=== PATIENT | male | born 1965 | race Caucasian/White ===

== ENCOUNTER 2024-10-27 11:41 | Inpatient (IN) | payer OTHER, SELFPAY ==
--- NOTE | 2024-10-27 12:30 | ED ---
General Adult HPI - General Chief complaint: Chest Pain Stated complaint: Chest/abd pain Time Seen by Provider: 10/27/24 12:00 Source: patient, family, RN notes reviewed, old records reviewed Mode of arrival: ambulatory - History of Present Illness Initial comments: This is a 59-year-old male who presents to the emergency department stating he never sees a doctor so he does not know what medical problems he has. Patient states his blood pressure though has been high for years. Patient states for the last week every time he eats he starts to feel like a fullness in his chest and it lasts for a while and then eventually subsides. Patient states he has no problem swallowing or eating and it does not happen immediately after he eats that happens a little bit after he is finished eating. Patient denies any nausea vomiting diarrhea. Patient states he has some difficulty breathing when this occurs but once it subsides his difficulty breathing is gone. Patient states he continues to smoke. 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 Patient denies any leg pain or calf pain or increased swelling in the legs. - Related Data Previous Rx's Medication Instructions Recorded HYDROcodone/APAP 5-325MG [[place] 1 tab PO Q6H PRN #20 tab 05/16/16 5-325] Sulfamethox-Tmp 800-160Mg [Bactrim 2 tab PO Q12HR #56 tab 05/16/16 DS 800-160 mg] Allergies Allergy/AdvReac Type Severity Reaction Status Date / Time codeine AdvReac Abdominal Verified 10/27/24 12:00 Pain Review of Systems ROS Statement: Those systems with pertinent positive or pertinent negative responses have been documented in the HPI. ROS Other: All systems not noted in ROS Statement are negative. Past Medical History Past Medical History: No Reported History History of Any Multi-Drug Resistant Organisms: None Reported Past Surgical History: Orthopedic Surgery Additional Past Surgical History / Comment(s): shoulder Past Anesthesia/Blood Transfusion Reactions: No Reported Reaction Past Psychological History: No Psychological Hx Reported Smoking Status: Current every day smoker Past Alcohol Use History: None Reported Past Drug Use History: None Reported - Past Family History Father Family Medical History: Myocardial Infarction ([place]) General Exam - General Exam Comments Initial Comments: GENERAL: Patient is well-developed and well-nourished. Patient is nontoxic and well- hydrated and is in mild distress. ENT: Neck is soft and supple. No significant lymphadenopathy is noted. Oropharynx is clear. Moist mucous membranes. Neck has full range of motion without eliciting any pain. EYES: The sclera were anicteric and conjunctiva were pink and moist. Extraocular movements were intact and pupils were equal round and reactive to light. Eyelids were unremarkable. PULMONARY: Unlabored respirations. Good breath sounds bilaterally. No audible rales rhonchi or wheezing was noted. CARDIOVASCULAR: Patient is tachycardic at 120 beats a minute ABDOMEN: Soft and nontender with normal bowel sounds. SKIN: Skin is clear with no lesions or rashes and otherwise unremarkable. NEUROLOGIC: Patient is alert and oriented x3. Cranial nerves II through XII are grossly intact. Motor and sensory are also intact. Normal speech, volume and content. Symmetrical smile. MUSCULOSKELETAL: Normal extremities with adequate strength and full range of motion. LYMPHATICS: No significant lymphadenopathy is noted PSYCHIATRIC: Normal psychiatric evaluation. Course Vital Signs 10/27/24 10/27/24 11:56 13:24 Temperature 99.2 F 98.0 F Pulse Rate 124 H 124 H Respiratory 18 17 Rate Blood Pressure 156/93 146/94 O2 Sat by Pulse 95 95 Oximetry Medical Decision Making - Medical Decision Making EKG is interpreted by myself. EKG shows sinus tachycardia at 122 bpm MA interval 148 QRS is 90 QT interval is 276 QTc is 349. Patient's EKG shows no ST segment elevation. Patient does have some T wave inversions in 1 and aVF. Patient also has Q waves in inferior and anterior leads Was pt. sent in by a medical professional or institution (, PA, SLUNK [employer]IN CURER, urgent care, hospital, or shelter...) When possible be specific @ -No Did you speak to anyone other than the patient for history (EMS, parent, family, police, friend...)? What history was obtained from this source @ -No Did you review nursing and triage notes (agree or disagree)? Why? @ -I reviewed and agree with nursing and triage notes Were old charts reviewed (outside hosp., previous admission, EMS record, old EKG, old radiological studies, urgent care reports/EKG's, shelter records)? Report findings @ -No old charts were reviewed Differential Diagnosis? @ -Differential Chest Pain: Stable Angina, Unstable Angina, STEMI, NSTEMI Aortic Dissection, Pneumothorax, Musculoskeletal, Esophageal Spasm GERD, Cholecystitis, Pancreatitis, Zoster, this is not meant to be an all-inclusive list. EKG interpreted by me (3pts min.). @ -As above X-rays interpreted by me (1pt min.). @ -Chest x-ray shows no acute abnormality CT interpreted by me (1pt min.). @ -None done U/S interpreted by me (1pt. min.). @ -None done What testing was considered but not performed or refused? (CT, X-rays, U/S, labs)? Why? @ -None What meds were considered but not given or refused? Why? @ -None Did you discuss the management of the patient with other professionals (prof savanah i.e. , PA, [employer]ER, lab, RT, psych nurse, secondary social studies teacher, inspector tubes, teacher, radio electronics officer, cyanide case hardener)? Give summary @ -I spoke with Dr. Bronson he agreed to come down and see the patient. I spoke with [facility] they agreed to admit the patient. Was smoking cessation discussed for >3mins.? @ -No Was critical care preformed (if so, how long)? @ -35 minutes Were there social determinants of health that impacted care today? How? (Homelessness, low income, unemployed, alcoholism, drug addiction, transportation, low edu. Level, literacy, decrease access to med. care, residential, rehab)? @ -No Was there de-escalation of care discussed even if they declined (Discuss DNR or withdrawal of care, Hospice)? DNR status @ -No What co-morbidities impacted this encounter? (DM, HTN, Smoking, COPD, CAD, Cancer, CVA, ARF, Chemo, Hep., AIDS, mental health diagnosis, sleep apnea, morbid obesity)? @ -None Was patient admitted / discharged? Hospital course, mention meds given and route, prescriptions, significant lab abnormalities, going to OR and other pertinent info. @ -Patient's troponin came back elevated patient had Q waves in the EKG. Patient was started on heparin given Lipitor aspirin and Nitropaste. Patient will be admitted to [facility] with a consult to cardiology Undiagnosed new problem with uncertain prognosis? @ -No Drug Therapy requiring intensive monitoring for toxicity (Heparin, Nitro, Insulin, Cardizem)? @ -No Were any procedures done? @ -No Diagnosis/symptom? @ -NSTEMI Acute, or Chronic, or Acute on Chronic? @ -Acute Uncomplicated (without systemic symptoms) or Complicated (systemic symptoms)? @ -Complicated Side effects of treatment? @ -No Exacerbation, Progression, or Severe Exacerbation? @ -No Poses a threat to life or bodily function? How? (Chest pain, [place], AR, pneumonia, PE, COPD, DKA, ARF, appy, cholecystitis, CVA, Diverticulitis, Homicidal, Suicidal, threat to staff... and all critical care pts) @ -Yes this can lead to cardiac damage and endorgan dysfunction - Lab Data Result diagrams: 10/27/24 13:08 10/27/24 13:08 Lab Results 10/27/24 10/27/24 10/27/24 Range/Units 13:08 13:08 13:08 WBC 12.5 H (3.8-10.6) k/uL RBC 5.69 (4.30-5.90) m/uL Hgb 17.8 H (13.0-17.5) gm/dL Hct 53.5 H (39.0-53.0) % MCV 94.0 (80.0-100.0) fL MCH 31.2 (25.0-35.0) pg MCHC 33.2 (31.0-37.0) g/dL RDW 12.9 (11.5-15.5) % Plt Count 340 (150-450) k/uL MPV 7.1 Neutrophils % 71 % Lymphocytes % 16 % Monocytes % 8 % Eosinophils % 3 % Basophils % 1 % Neutrophils # 8.9 H (1.3-7.7) k/uL Lymphocytes # 2.0 (1.0-4.8) k/uL Monocytes # 1.0 (0-1.0) k/uL Eosinophils # 0.4 (0-0.7) k/uL Basophils # 0.1 (0-0.2) k/uL PT 10.9 (10.0-12.5) sec INR 1.0 (<1.2) APTT 24.1 (22.0-30.0) sec D-Dimer 0.49 (<0.60) mg/L FEU Sodium 140 (137-145) mmol/L Potassium 4.7 (3.5-5.1) mmol/L Chloride 105 (98-107) mmol/L Carbon Dioxide 25 (22-30) mmol/L Anion Gap 10 mmol/L BUN 16 (9-20) mg/dL Creatinine 0.88 (0.66-1.25) mg/dL Est GFR (CKD-EPI)AfAm >90 (>60 ml/min/1.73 sqM) Est GFR (CKD-EPI)NonAf >90 (>60 ml/min/1.73 sqM) Glucose 106 H (74-99) mg/dL Calcium 9.9 (8.4-10.2) mg/dL Magnesium 2.0 (1.6-2.3) mg/dL Total Bilirubin 0.6 (0.2-1.3) mg/dL AST 45 (17-59) U/L ALT 103 H (4-49) U/L Alkaline Phosphatase 92 (38-126) U/L Troponin I (0.000-0.034) ng/mL NT-Pro-B Natriuret Pep 1010 pg/mL Total Protein 7.4 (6.3-8.2) g/dL Albumin 4.8 (3.5-5.0) g/dL Lipase 171 (23-300) U/L 10/27/24 Range/Units 13:08 WBC (3.8-10.6) k/uL RBC (4.30-5.90) m/uL Hgb (13.0-17.5) gm/dL Hct (39.0-53.0) % MCV (80.0-100.0) fL MCH (25.0-35.0) pg MCHC (31.0-37.0) g/dL RDW (11.5-15.5) % Plt Count (150-450) k/uL MPV Neutrophils % % Lymphocytes % % Monocytes % % Eosinophils % % Basophils % % Neutrophils # (1.3-7.7) k/uL Lymphocytes # (1.0-4.8) k/uL Monocytes # (0-1.0) k/uL Eosinophils # (0-0.7) k/uL Basophils # (0-0.2) k/uL PT (10.0-12.5) sec INR (<1.2) APTT (22.0-30.0) sec D-Dimer (<0.60) mg/L FEU Sodium (137-145) mmol/L Potassium (3.5-5.1) mmol/L Chloride (98-107) mmol/L Carbon Dioxide (22-30) mmol/L Anion Gap mmol/L BUN (9-20) mg/dL Creatinine (0.66-1.25) mg/dL Est GFR (CKD-EPI)AfAm (>60 ml/min/1.73 sqM) Est GFR (CKD-EPI)NonAf (>60 ml/min/1.73 sqM) Glucose (74-99) mg/dL Calcium (8.4-10.2) mg/dL Magnesium (1.6-2.3) mg/dL Total Bilirubin (0.2-1.3) mg/dL AST (17-59) U/L ALT (4-49) U/L Alkaline Phosphatase (38-126) U/L Troponin I 3.010 H* (0.000-0.034) ng/mL NT-Pro-B Natriuret Pep pg/mL Total Protein (6.3-8.2) g/dL Albumin (3.5-5.0) g/dL Lipase (23-300) U/L Disposition Clinical Impression: Acute non-ST elevation myocardial infarction (NSTEMI) Disposition: ADMITTED IP TO THIS HOSP Referrals: None,Stated [Primary Care Provider] - 1-2 days Time of Disposition: 14:11
--- NOTE | 2024-10-27 12:47 | XR ---
EXAMINATION TYPE: XR chest 2V DATE OF EXAM: 10/27/2024 CLINICAL INDICATION: Male, 59 years old with history of Chest Pain, TECHNIQUE: Frontal and lateral views of the chest are obtained. COMPARISON: None FINDINGS: Overlying EKG leads are seen. There is no focal air space opacity, pleural effusion, or pne umothorax seen. Cardiomegaly is present. The osseous structures are intact. IMPRESSION: Cardiomegaly without acute pulmonary process. [facility], , 10/27/2024 12:44 PM
[2024-10-27 13:23] LABS: Basophils # (A) 0.1 k/uL (0-0.2); Basophils % (A) 1 %; Eosinophils # (A) 0.4 k/uL (0-0.7); Eosinophils % (A) 3 %; HCT 53.5 % (39.0-53.0); HGB 17.8 gm/dL (13.0-17.5); Lymphocytes % (A) 16 %; MCH 31.2 pg (25.0-35.0); MCHC 33.2 g/dL (31.0-37.0); Mean Platelet Volume 7.1; Monocytes % (A) 8 %; Neutrophils # (A) 8.9 k/uL (1.3-7.7); Neutrophils % (A) 71 %; Platelet Count 340 k/uL (150-450); RBC 5.69 m/uL (4.30-5.90); RDW 12.9 % (11.5-15.5); WBC 12.5 k/uL (3.8-10.6)
[2024-10-27 13:36] LABS: ALT 103 U/L (4-49); AST 45 U/L (17-59); African American GFR (CKD) >90 (>60 ml/min/1.73 sqM); Albumin 4.8 g/dL (3.5-5.0); Alkaline Phosphatase 92 U/L (38-126); Anion Gap 10 mmol/L; Blood Urea Nitrogen 16 mg/dL (9-20); Calcium 9.9 mg/dL (8.4-10.2); Carbon Dioxide 25 mmol/L (22-30); Chloride 105 mmol/L (98-107); Glucose 106 mg/dL (74-99); Lipase 171 U/L (23-300); Non-African American GFR(CKD) >90 (>60 ml/min/1.73 sqM); Potassium 4.7 mmol/L (3.5-5.1); Sodium 140 mmol/L (137-145); Total Bilirubin 0.6 mg/dL (0.2-1.3); Total Protein 7.4 g/dL (6.3-8.2)
[2024-10-27 13:38] LABS: Partial Thromboplastin Time 24.1 sec (22.0-30.0); Prothrombin Time 10.9 sec (10.0-12.5)
[2024-10-27 13:41] LABS: NT-Pro-B-Type Natriuretic Pept 1010 pg/mL
[2024-10-27] MEDS: HEPARIN SODIUM 1,000 UN/ML (10ML VL) IV ONE (14:06)
[2024-10-27] MEDS: HEPARIN SOD,PORK IN 0.45% NACL 25,000 UNIT in 0.45% NACL 1 250ML.BAG IV SCH (14:08)
[2024-10-27] MEDS: LORazepam 2 MG/ML INJ IV STA (14:10)
[2024-10-27] MEDS ORDERED: NITROGLYCERIN SL TABS 0.4 MG TAB SUBLINGUAL PRN ×2 (14:12→15:59)
[2024-10-27] MEDS: ATORVASTATIN 80 MG TAB PO STA (14:15)
[2024-10-27 14:57] LABS: Influenza A Not Detected (Not Detectd); Influenza B Not Detected (Not Detectd); RSV Not Detected (Not Detectd)
[2024-10-27] MEDS: SODIUM CHLORIDE 0.9% 1,000 ML in EMPTY BAG 1 BAG IV SCH (15:30)
[2024-10-27] MEDS: IV FLUID CONTINUATION 1,000 ML IV ONE (15:30)
[2024-10-27] MEDS ORDERED: ALPRAZolam 0.25 MG TAB PO PRN (15:59)
[2024-10-27] MEDS: ASPIRIN 325 MG TAB PO STA (16:12)
[2024-10-27] MEDS: MIDAZOLAM 2 MG/2 ML VIAL IVP ONE (17:12)
[2024-10-27] MEDS: fentaNYL (PF) 50 MCG/ML 2 ML AMP IVP ONE (17:12)
[2024-10-27] MEDS: LIDOCAINE 1% INJ 10MG/ML (20 ML MDV) SQ ONE (17:13)
[2024-10-27] MEDS: VERAPAMIL SYRINGE (5 MG/10 ML) INTRAARTER ONE (17:15)
[2024-10-27] MEDS: HEPARIN SODIUM 1,000 UN/ML (10ML VL) IVP ONE (17:19)
[2024-10-27] MEDS: IOPAMIDOL-370 100ML BTL INJ ONE (17:35)
[2024-10-27] MEDS ORDERED: RX INFO: IV CONTRAST WAS GIVEN 1 EACH MISC MISCELLANE PRN (18:10)
--- NOTE | 2024-10-27 18:14 | P.PCN ---
Date of Procedure: 10/27/24 Operative Findings: CARDIAC CATHETERIZATION PERFORMING PHYSICIAN: Geraldo Bronson MD, RPVI PROCEDURE PERFORMED: 1. Selective right and left coronary angiogram 2. Left heart catheterization 3. Ultrasound-guided access of the right radial artery INDICATION: Acute coronary syndrome COMPLICATION: None APPROACH: Right radial artery LEVEL OF SEDATION: Moderate with a sedation length of 30 minutes PROCEDURE DESCRIPTION: After obtaining an informed consent, the patient was brought to cardiac freezer laboratory technician. Local anesthesia was performed using lidocaine subcutaneously. The right radial artery was cannulated using Seldinger technique, under ultrasound guidance, the guidewire passed easily, following that we advanced a 5-[place] sheath dilator assembly, the wire and dilator were removed and sheath was flushed. Following that, 2 mg of verapamil along with 5000 unit heparin were given. Selective right and left coronary angiogram using a 5-[place] JR4 and JL 3.5 catheters. Following that we did left heart catheterization using 5-[place] pigtail catheter. The procedure was completed there was no complication. SELECTIVE CORONARY ANGIOGRAM: The right coronary artery: Large caliber vessel and a dominant vessel with mild to moderate disease appears to be diffuse mostly involving the distal portion with no evidence of high-grade stenosis Left main: Is angiographically normal The left circumflex: Large caliber vessel. The mid left circumflex is 100% occluded just after the bifurcation of a large OM which has a critical disease involving the proximal portion The left anterior descending artery: Large caliber vessel with a critical disease involving the proximal to midportion by the bifurcation of a diagonal branch. HEMODYNAMICS: LVEDP was about 28 mmHg with no significant gradient across aortic valve CONCLUSION: 1. Critical disease involving the proximal to mid LAD by the bifurcation of a diagonal branch 2. Occluded LCx in the midportion and severe disease involving OM1 as well 3. Elevated left-sided filling pressure POSTPROCEDURE MANAGEMENT: Maximize medical treatment including starting the patient on high intensity statin in addition to aspirin as well as beta-nguyễn and ESTHER inhibitor using lisinopril bit obtain an echocardiogram with Doppler. Consider also starting the patient on diuretics gently. Beside that consult surgery further evaluation of CABG.
[2024-10-27 18:17] LABS: Glucose,Whole Blood 103 mg/dL (70-110)
[2024-10-27] MEDS: SODIUM CHLORIDE 0.9% 1,000 ML IV SCH (18:35)
[2024-10-27] MEDS: NITROGLYCERIN OINT 1 INCH/GM PACKET TOPICAL SCH (18:44)
[2024-10-27] MEDS: METOPROLOL TARTRATE 12.5 MG TAB PO SCH (19:59)
[2024-10-27] MEDS: ATORVASTATIN 80 MG TAB PO SCH (19:59)
[2024-10-27] MEDS: ALPRAZolam 0.5 MG TAB PO PRN (21:17)
[2024-10-28 05:52] LABS: HCT 51.4 % (39.0-53.0); HGB 16.7 gm/dL (13.0-17.5); MCH 31.2 pg (25.0-35.0); MCHC 32.5 g/dL (31.0-37.0); Mean Platelet Volume 7.7; Platelet Count 325 k/uL (150-450); RBC 5.36 m/uL (4.30-5.90); RDW 13.2 % (11.5-15.5); WBC 9.4 k/uL (3.8-10.6)
[2024-10-28 06:12] LABS: African American GFR (CKD) >90 (>60 ml/min/1.73 sqM); Anion Gap 7 mmol/L; Blood Urea Nitrogen 17 mg/dL (9-20); Calcium 9.5 mg/dL (8.4-10.2); Carbon Dioxide 24 mmol/L (22-30); Chloride 106 mmol/L (98-107); Glucose 100 mg/dL (74-99); Non-African American GFR(CKD) >90 (>60 ml/min/1.73 sqM); Potassium 4.8 mmol/L (3.5-5.1); Sodium 137 mmol/L (137-145)
[2024-10-28] MEDS: HEPARIN SODIUM 1,000 UN/ML (10ML VL) IV PRN (06:28)
--- NOTE | 2024-10-28 06:34 | P.CRDCN ---
History of Present Illness Consult date: 10/27/24 History of present illness: The patient is a very pleasant 59-year-old gentleman who did not see a physician or primary care physician in more than 8 years with a past medical history significant for hypertension and dyslipidemia and smoking presented to the hospital complaining of chest discomfort started a week ago. He was experiencing discomfort in the middle of the chest as a pressure on the chest with no radiation to the arm or neck or shoulders or back and no associated symptoms of any shortness of breath or sweating or dizziness or lightheadedness or any presyncope or syncope he underwent further evaluation in the ER including EKG showing Q waves anteriorly and troponin came in to be abnormal and concerning for acute coronary event with chest x-ray did not show any acute abnormalities. Subsequently the patient underwent a heart catheterization which revealed severe tow-vessel CAD with occluded LCx and critical disease involving the LAD and intermediate disease involving the right coronary artery. At that point we consulted surgery to see the patient the patient is in process of seeing seen by cardiothoracic surgical team. An echocardiogram was ordered and is still pending. The physical examination is remarkable for regular rhythm with a soft systolic murmur and clear breathing sounds bilaterally and no edema was noted. Assessment Acute coronary syndrome Severe CAD as described above History of smoking Multiple comorbid conditions Plan Restart the patient back on heparin Continue aspirin Add high intensity statin Add beta-nguyễn and ESTHER inhibitor Follow-up on the echocardiogram Further recommendation from the cardiothoracic surgical team Past Medical History Past Medical History: Hypertension, Myocardial Infarction ([place]) Last Myocardial Infarction Date:: 10/27/24 History of Any Multi-Drug Resistant Organisms: None Reported Past Surgical History: Orthopedic Surgery Additional Past Surgical History / Comment(s): shoulder, finger sx Past Anesthesia/Blood Transfusion Reactions: No Reported Reaction Past Psychological History: No Psychological Hx Reported Additional Psychological History / Comment(s): Lives with his significant other. 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 No experience, no travel, no animal exposures. Heavy tobacco and caffeine use. Did not relates to injection drug use, or significant alcohol use. Smoking Status: Current every day smoker Past Alcohol Use History: None Reported Past Drug Use History: None Reported - Past Family History Father Family Medical History: Myocardial Infarction (MS) Medications and Allergies Home Medications Medication Instructions Recorded Confirmed Type Aspirin EC [Ecotrin Low Dose] 81 mg PO DAILY 10/27/24 10/27/24 History Allergies Allergy/AdvReac Type Severity Reaction Status Date / Time codeine AdvReac Abdominal Verified 10/27/24 14:55 Pain Physical Exam Vitals: Vital Signs Temp Pulse Pulse Resp BP BP Pulse Ox 10/28/24 05:00 88 14 127/85 94 L 10/28/24 04:00 98.5 F 91 19 103/70 94 L 10/28/24 03:00 91 20 108/68 95 10/28/24 02:00 95 16 99/62 95 10/28/24 01:00 97 13 107/56 96 10/28/24 00:00 99.2 F 101 H 12 135/64 93 L 10/27/24 23:16 103 H 20 135/64 94 L 10/27/24 23:00 105 H 15 141/89 94 L 10/27/24 22:00 110 H 27 H 152/95 93 L 10/27/24 21:00 105 H 14 142/85 93 L 10/27/24 20:00 97.6 F 112 H 24 147/100 10/27/24 19:00 108 H 25 H 147/98 92 L 10/27/24 18:45 112 H 18 139/93 90 L 10/27/24 18:30 109 H 24 141/100 92 L 10/27/24 18:15 98.1 F 109 H 16 148/99 92 L 10/27/24 16:15 103 H 16 143/79 10/27/24 16:01 98.5 F 116 H 16 141/91 93 L 10/27/24 16:00 111 H 16 149/87 10/27/24 15:52 128 H 22 166/105 93 L 10/27/24 15:45 116 H 16 169/89 10/27/24 15:30 119 H 16 141/91 99 10/27/24 14:42 123 H 17 167/107 93 L 10/27/24 13:24 98.0 F 124 H 17 146/94 95 10/27/24 11:56 99.2 F 124 H 18 156/93 95 Intake and Output 10/27/24 10/27/24 10/28/24 14:59 22:59 06:59 Intake Total 624.167 140.833 Output Total 1075 0 Balance -450.833 140.833 Intake: IV 575 75 Sodium Chloride 0.9% 1, 225 75 000 ml @ 75 mls/hr IV . [id number] [facility] Rx#:[id number] Intake, IV Titration 49.167 65.833 Amount Heparin Sod,Pork in 0.45% 49.167 65.833 NaCl 25,000 unit In 0.45 % NaCl 1 250ml.bag @ 8. 479 UNITS/KG/HR 10 mls/hr IV .Q24H [facility] Rx#: [id number] Output: Urine 1075 0 Other: Voiding Method Urinal Urinal Weight 117.934 kg 120.4 kg 119 kg Results 10/28/24 05:18 10/28/24 05:18 Cardiac Enzymes 10/27/24 10/27/24 10/27/24 Range/Units 13:08 13:08 19:52 AST 45 (17-59) U/L Troponin I 3.010 H* 3.940 H* (0.000-0.034) ng/mL 10/27/24 Range/Units 23:08 AST (17-59) U/L Troponin I 4.140 H* (0.000-0.034) ng/mL Coagulation 10/27/24 10/28/24 Range/Units 13:08 05:18 PT 10.9 (10.0-12.5) sec APTT 24.1 25.1 (22.0-30.0) sec CBC 10/27/24 10/28/24 Range/Units 13:08 05:18 WBC 12.5 H 9.4 (3.8-10.6) k/uL RBC 5.69 5.36 (4.30-5.90) m/uL Hgb 17.8 H 16.7 (13.0-17.5) gm/dL Hct 53.5 H 51.4 (39.0-53.0) % Plt Count 340 325 (150-450) k/uL Comprehensive Metabolic Panel 10/27/24 10/28/24 Range/Units 13:08 05:18 Sodium 140 137 (137-145) mmol/L Potassium 4.7 4.8 (3.5-5.1) mmol/L Chloride 105 106 (98-107) mmol/L Carbon Dioxide 25 24 (22-30) mmol/L BUN 16 17 (9-20) mg/dL Creatinine 0.88 0.92 (0.66-1.25) mg/dL Glucose 106 H 100 H (74-99) mg/dL Calcium 9.9 9.5 (8.4-10.2) mg/dL AST 45 (17-59) U/L ALT 103 H (4-49) U/L Alkaline Phosphatase 92 (38-126) U/L Total Protein 7.4 (6.3-8.2) g/dL Albumin 4.8 (3.5-5.0) g/dL Current Medications Generic Name Dose Route Start Last Admin Trade Name Freq PRN Reason Stop Dose Admin Alprazolam 0.25 mg 10/27/24 15:59 Alprazolam 0.25 Mg Tab PO Q6HR PRN Mild Anxiety Alprazolam 0.5 mg 10/27/24 15:59 10/27/24 21:17 Alprazolam 0.5 Mg Tab PO 0.5 mg Q6HR PRN Administration Moderate Anxiety Aspirin 325 mg 10/28/24 09:00 Aspirin 325 Mg Tab PO DAILY MAYTE Atorvastatin Calcium 80 mg 10/27/24 21:00 10/27/24 19:59 Atorvastatin 80 Mg Tab PO 80 mg HS MAYTE Administration Heparin Sodium (Porcine) 0 unit 10/28/24 06:21 10/28/24 06:28 Heparin Sodium 1,000 Un/Ml (10ml Vl) IV 4,000 unit PER PROTOCOL PRN Administration Low PTT Protocol Heparin Sodium/Sodium Chloride 250 mls @ 10 mls/hr 10/27/24 14:00 10/28/24 06:24 25,000 unit/ Sodium Chloride IV 11.48 units/kg/hr .Q24H MAYTE 13.539 mls/hr Titration Protocol 8.479 UNITS/KG/HR Heparin Sodium (Porcine) 10, 1,001 mls @ 999 mls/hr 10/28/24 07:00 000 unit/ Sodium Chloride IRRIGATION 10/28/24 23:00 ONCE PRN INTRA-OP Heparin Sodium (Porcine) 2,500 250.5 mls @ 250 mls/hr 10/28/24 07:00 unit/ Sodium Chloride IRRIGATION 10/28/24 23:00 ONCE PRN INTRA-OP Sodium Chloride 1,000 ml/ IV 1,000 mls @ 117.934 mls/hr 10/27/24 16:00 10/27/24 22:39 Solution IV Not Given .Q8H29M MAYTE 1 ML/KG/HR Lisinopril 2.5 mg 10/28/24 09:00 Lisinopril 2.5 Mg Tab PO DAILY MAYTE Metoprolol Tartrate 12.5 mg 10/27/24 21:00 10/27/24 19:59 Metoprolol Tartrate 12.5 Mg Tab PO 12.5 mg BID MAYTE Administration Miscellaneous Information 1 each 10/27/24 18:10 Rx Info: Iv Contrast Was Given 1 Each Misc MISCELLANE 10/29/24 18:10 DAILY PRN Per Protocol Nitroglycerin 1 inch 10/27/24 18:00 10/28/24 05:56 Nitroglycerin Oint 1 Inch/Gm Packet TOPICAL 1 inch Q6HR MAYTE Administration Nitroglycerin 0.4 mg 10/27/24 15:59 Nitroglycerin Sl Tabs 0.4 Mg Tab SUBLINGUAL Q5M PRN Chest Pain Intake and Output 10/27/24 10/27/24 10/28/24 14:59 22:59 06:59 Intake Total 624.167 140.833 Output Total 1075 0 Balance -450.833 140.833 Intake: IV 575 75 Sodium Chloride 0.9% 1, 225 75 000 ml @ 75 mls/hr IV . [id number] [facility] Rx#:[id number] Intake, IV Titration 49.167 65.833 Amount Heparin Sod,Pork in 0.45% 49.167 65.833 NaCl 25,000 unit In 0.45 % NaCl 1 250ml.bag @ 8. 479 UNITS/KG/HR 10 mls/hr IV .Q24H [facility] Rx#: [id number] Output: Urine 1075 0 Other: Voiding Method Urinal Urinal Weight 117.934 kg 120.4 kg 119 kg Patient Weight 10/28/24 06:59 Weight 119 kg 10/28/24 05:18 10/28/24 05:18
--- NOTE | 2024-10-28 06:35 | P.PN ---
Subjective Progress Note Date: 10/28/24 The patient is a very pleasant 59-year-old gentleman who did not see a physician or primary care physician in more than 8 years with a past medical history significant for hypertension and dyslipidemia and smoking presented to the hospital complaining of chest discomfort started a week ago. He was experi encing discomfort in the middle of the chest as a pressure on the chest with no radiation to the arm or neck or shoulders or back and no associated symptoms of any shortness of breath or sweating or dizziness or lightheadedness or any presyncope or syncope he underwent further evaluation in the ER including EKG showing Q waves anteriorly and troponin came in to be abnormal and concerning for acute coronary event with chest x-ray did not show any acute abnormalities. Subsequently the patient underwent a heart catheterization which revealed severe tow-vessel CAD with occluded LCx and critical disease involving the LAD and intermediate disease involving the right coronary artery. At that point we consulted surgery to see the patient the patient is in process of seeing seen by cardiothoracic surgical team. An echocardiogram was ordered and is still pending. The physical examination is remarkable for regular rhythm with a soft systolic murmur and clear breathing sounds bilaterally and no edema was noted. October 28, 2024 The patient was seen and evaluated this morning with he has been asymptomatic throughout the night. Hemodynamically he is stable. He is back on heparin IV. Beside that he is on aspirin and high intensity statin and beta-nguyễn and ESTHER inhibitor. The echo still pending. The physical examination is remarkable for regular rhythm and soft systolic murmur and clear breathing sounds bilaterally and no edema was noted in the lower extremities Assessment Acute coronary syndrome Severe CAD as described above History of smoking Multiple comorbid conditions Plan Continue the current medical regimen as described above Follow-up on the echocardiogram Follow-up with the patient after he will be seen by the surgical team Objective - Vital Signs Vital signs: Vital Signs Temp 98.5 F 10/28/24 04:00 Pulse 88 10/28/24 05:00 Resp 14 10/28/24 05:00 BP 127/85 10/28/24 05:00 Pulse Ox 94 L 10/28/24 05:00 FiO2 Intake & Output 10/27/24 10/27/24 10/28/24 06:59 18:59 06:59 Intake Total 391.167 373.833 Output Total 375 700 Balance 16.167 -326.167 Weight 120.4 kg 119 kg Intake: IV 350 300 Sodium Chloride 0.9% 1, 300 000 ml @ 75 mls/hr IV . [id number] [facility] Rx#:[id number] Intake, IV Titration 41.167 73.833 Amount Heparin Sod,Pork in 0.45% 41.167 73.833 NaCl 25,000 unit In 0.45 % NaCl 1 250ml.bag @ 8. 479 UNITS/KG/HR 10 mls/hr IV .Q24H [facility] Rx#: [id number] Output: Urine 375 700 Other: Voiding Method Urinal - Labs CBC & Chem 7: 10/28/24 05:18 10/28/24 05:18 Labs: Abnormal Lab Results - Last 24 Hours (Table) 10/27/24 10/27/24 10/27/24 Range/Units 13:08 13:08 13:08 WBC 12.5 H (3.8-10.6) k/uL Hgb 17.8 H (13.0-17.5) gm/dL Hct 53.5 H (39.0-53.0) % Neutrophils # 8.9 H (1.3-7.7) k/uL Glucose 106 H (74-99) mg/dL ALT 103 H (4-49) U/L Troponin I 3.010 H* (0.000-0.034) ng/mL 10/27/24 10/27/24 10/28/24 Range/Units 19:52 23:08 05:18 WBC (3.8-10.6) k/uL Hgb (13.0-17.5) gm/dL Hct (39.0-53.0) % Neutrophils # (1.3-7.7) k/uL Glucose 100 H (74-99) mg/dL ALT (4-49) U/L Troponin I 3.940 H* 4.140 H* (0.000-0.034) ng/mL
[2024-10-28] MEDS ORDERED: HEPARIN SODIUM,PORCINE (1 ML) 2,500 UNIT in SODIUM CHLORIDE 0.9% 250 ML IRRIGATION PRN (07:00)
[2024-10-28] MEDS ORDERED: HEPARIN SODIUM,PORCINE 10,000 UNIT in SODIUM CHLORIDE 0.9% 1,000 ML IRRIGATION PRN (07:00)
[2024-10-28 08:00] LABS: INR 1.2 (<1.2); Partial Thromboplastin Time 48.1 sec (22.0-30.0); Prothrombin Time 12.4 sec (10.0-12.5)
[2024-10-28 08:11] LABS: ALT 109 U/L (4-49); AST 51 U/L (17-59); African American GFR (CKD) >90 (>60 ml/min/1.73 sqM); Albumin 4.4 g/dL (3.5-5.0); Alkaline Phosphatase 88 U/L (38-126); Anion Gap 8 mmol/L; Blood Urea Nitrogen 18 mg/dL (9-20); Calcium 9.6 mg/dL (8.4-10.2); Carbon Dioxide 23 mmol/L (22-30); Chloride 106 mmol/L (98-107); Glucose 142 mg/dL (74-99); Magnesium 2.1 mg/dL (1.6-2.3); Non-African American GFR(CKD) >90 (>60 ml/min/1.73 sqM); Potassium 5.3 mmol/L (3.5-5.1); Sodium 137 mmol/L (137-145); Total Bilirubin 0.8 mg/dL (0.2-1.3); Total Protein 6.8 g/dL (6.3-8.2)
[2024-10-28] MEDS: ASPIRIN 325 MG TAB PO SCH (08:11)
[2024-10-28 08:37] LABS: Chol/HDL Ratio 4.61 Ratio; LDL Cholesterol,Calculated 69.7 mg/dL (0.0-131.0)
--- NOTE | 2024-10-28 09:22 | US ---
EXAMINATION TYPE: Pre-Operative Non-Invasive Evaluation of the hand for Potential Radial Artery Donald anand, Measurements only DATE OF EXAM: 10/28/2024 9:06 AM CLINICAL INDICATION: Male, 59 years old with history of Pre-Op Cardiac Surgery; preop, Preop- Cardiac Surgery TECHNIQUE:Grayscale and color Doppler imaging of the radial artery(s) SIDE PERFORMED: left FINDINGS: Dominant hand: right Duplex Findings: Radial Artery: Color flow seen Measurements in mm, transverse view: Left Radial: Proximal: 5.8 x 4.3 mm Mid: 4.5 x 3.5 mm Distal: 4.6 x 4.0 mm Slightly limited due to IV IMPRESSION: 1. No evidence for vascular occlusion. 2. Measurements as described above. [facility], , 10/28/2024 9:20 AM
--- NOTE | 2024-10-28 09:22 | US ---
EXAMINATION TYPE: US vein mapping BILAT DATE OF EXAM: 10/28/2024 9:00 AM COMPARISON: NONE CLINICAL INDICATION: Male, 59 years old with history of PreOp Cardiac Surgery; preop, Preop- Cardiac Surgery TECHNIQUE: Grayscale and color Doppler imaging of the lower extremity venous system. SIDE PERFORMED: Bilateral FINDINGS: DUPLEX FINDINGS: Greater Saphenous: Color flow seen Measurements in mm: Right Greater Saphenous: Groin: 8.7 x 8.5 mm High Thigh: 3.4 x 3.5 mm Mid Thigh: 4.5 x 4.1 mm Above Knee: 3.8 x 3.8 mm Knee: 3.7 x 3.1 mm Below Knee: 3.7 x 3.1 mm Mid Calf: 4.0 x 3.5 mm At Ankle: 5.0 x 3.9 mm Left Greater Saphenous: Groin: 9.5 x 7.5 mm High Thigh: 4.3 x 3.3 mm Mid Thigh: 4.5 x 4.1 mm Above Knee: 3.8 x 3.8 mm Knee: 4.2 x 3.5 mm Below Knee: 4.0 x 3.1 mm Mid Calf: 4.3 x 3.3 mm At Ankle: 6.2 x 4.0 mm IMPRESSION: 1. No evidence for occlusion. 2. GSV measurements listed above. 3. Performing surgeon to determine viability as conduit. [facility], , 10/28/2024 9:19 AM
--- NOTE | 2024-10-28 09:23 | US ---
EXAMINATION TYPE: US carotid duplex BILAT DATE OF EXAM: 10/28/2024 COMPARISON: NONE CLINICAL INDICATION: Male, 59 years old with history of Pre-Op Cardiac Surgery; preop Additional History: Z01.81- Pre-operative exam TECHNIQUE: Grayscale, color Doppler and spectral Doppler evaluation of the bilateral carotid systems and vertebral arteries. Indirect Doppler criteria was utilized. FINDINGS: EXAM MEASUREMENTS: RIGHT: Peak Systolic Velocity (PSV) cm/sec ----- Right CCA: 74.3 ----- Right ICA: 101.7 ----- Right ECA: 158.9 ICA/CCA ratio: 1.4 RIGHT: End Diastole cm/sec ----- Right CCA: 19.3 ----- Right ICA: 30.5 ----- Right ECA: 17.0 LEFT: Peak Systolic Velocity (PSV) cm/sec ----- Left CCA: 78.4 ----- Left ICA: 93.6 ----- Left ECA: 83.5 ICA/CCA ratio: 1.2 LEFT: End Diastole cm/sec ----- Left CCA: 21.2 ----- Left ICA: 39.4 ----- Left ECA: 9.2 VERTEBRALS (direction of flow): Right Vertebral: Antegrade Left Vertebral: Antegrade Rhythm: Normal [employer] NOTES: plaque seen in bilateral bulbs Color Doppler imaging shows patency with blood flow throughout the carotid artery. Spectral waveforms are within normal limits. IMPRESSION: Right: Less than 50% stenosis of the carotid bifurcation. Left: No hemodynamically significant stenosis. Criteria for Assigning % of Stenosis / Diameter reduction (Estimation based on the indirect measurements of the internal carotid artery velocities (ICA PSV). 1. Normal (no stenosis)=ICA PSV < 125 cm/s: ratio < 2.0: ICA EDV<40 cm/s. 2. Less than 50% stenosis=ICA PSV < 125 cm/s: ratio < 2.0: ICA EDV<40 cm/s. 3. 50 to 69% stenosis=ICA PSV of 125 to 230 cm/s: ration 2.0 ? 4.0: ICA EDV 40-100 cm/s. 4. Greater than 70% stenosis to near occlusion= ICA PSV > 230 cm/s: ratio > 4.0: ICA EDV > 100 cm/s. 5. Near occlusion= ICA PSV velocities may be low or undetectable: variable ratio and ICA EDV. 6. Total occlusion=unable to detect flow. [facility], , 10/28/2024 9:21 AM
[2024-10-28 10:04] LABS: Appearance,Urine Clear (Clear); Bilirubin,Urine Negative (Negative); Blood,Urine Negative (Negative); Color,Urine Light Yellow; Glucose,Urine (UA) Negative (Negative); Ketones,Urine Negative (Negative); Leukocyte Esterase,Urine Negative (Negative); Nitrite,Urine Negative (Negative); PH, Urine 6.5 (5.0-8.0); Protein,Urine Negative (Negative); Specific Gravity,Urine 1.019 (1.001-1.035); Urobilinogen,Urine <2.0 mg/dL (<2.0)
--- NOTE | 2024-10-28 10:15 | P.GSCN ---
History of Present Illness Consult date: 10/28/24 Reason for Consult: Multivessel coronary artery disease, non-ST elevated myocardial infarction this admission Requesting physician: Geraldo Bronson History of present illness: This is a 59-year-old gentleman who does not follow with a primary care physician on a regular basis. He reports it has been about 8 years since he has last seen in physician. Patient has a past medical history significant for hypertension, B-cell lymphoma, obesity with a BMI of 36.6 kg/m, early onset coronary artery disease with his grandfather dying at age 55 from a myocardial infarction and chronic ongoing tobacco dependence in which he smokes about 2 packs of cigarettes per day. He presented to the emergency department here at [facility] yesterday October 27, 2024 with complaints of indigestion after eating, fullness in his chest and some associated shortness of breath. He reports he felt this was indigestion and was treating himself with Gas-X, Mylanta and Verners. He does report having GI symptoms for the last 7 days with complaints of diarrhea. The patient also reports that the symptoms of chest fullness has been present for about the last 7 to 8 days. He denies any recent fever, chills, nausea, vomiting, constipation, headache, diaphoresis, hematemesis, hemoptysis, edema, presyncope or syncope. Due to the chest fullness he decided to present to the emergency department for further evaluation and treatment recommendations. Initial laboratory results showed a WBC count of 12.5, hemoglobin 7.8, hematocrit 53.5, neutrophils 8.9, PT 10.9, INR at 1.0, PTT 24.1, D-dimer 0.49, sodium 140, potassium 4.7, chloride 105, BUN 16, creatinine 0.88, glucose 106, calcium 9.9, magnesium 2.0, AST 45, ALT 103, proBNP 1010, and serial troponins were elevated as high as 4.140. A twelve-lead EKG was completed which showed sinus tachycardia with a heart rate of 122 bpm and Q waves anteriorly. A chest x-ray was completed which showed cardiomegaly without acute pulmonary process. Subsequently, due to the patient's presenting symptoms and elevated troponins a consult was placed to Dr. Bronson from [facility]. Dr. Bronson met with the patient, and recommended the patient undergo a cardiac catheterization which was completed yesterday 10/27/2024. The cardiac catheterization revealed critical disease involving the proximal mid left anterior sending coronary artery by the bifurcation of the diagonal branch, occluded left circumflex coronary artery in the midportion and severe disease involving the obtuse marginal 1 coronary artery. The right coronary artery showed to be a dominant vessel with mild to moderate diffuse disease involving the distal portion with no evidence of high-grade stenosis. The results of the cardiac catheterization were reviewed with the patient by Dr. Bronson and a consult was placed to Dr. Javier Jose from cardiothoracic surgery for further evaluation and treatment recommendations including myocardial vascularization surgery. Review of Systems A review of systems was completed and was negative except as mentioned in the HPI. Past Medical History Past Medical History: Hypertension, Myocardial Infarction ([place]) Additional Past Medical History / Comment(s): B-cell lymphoma Last Myocardial Infarction Date:: 10/27/24 History of Any Multi-Drug Resistant Organisms: None Reported Past Surgical History: Orthopedic Surgery, Tonsillectomy Additional Past Surgical History / Comment(s): shoulder, right hand middle finger surgery secondary to a strep group B and Staphylococcus aureus infection in 2016 Past Anesthesia/Blood Transfusion Reactions: No Reported Reaction Past Psychological History: No Psychological Hx Reported Additional Psychological History / Comment(s): Lives with his significant other. 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 No experience, no travel, no animal exposures. Heavy tobacco and caffeine use. Did not relates to injection drug use, or significant alcohol use. Smoking Status: Current every day smoker (Smokes 1 to 2 packs of cigarettes per day) Past Alcohol Use History: None Reported Past Drug Use History: None Reported - Past Family History Father Family Medical History: Myocardial Infarction ([place]) Additional Family Medical History / Comment(s): Grandfather from a myocardial infarction at age 55. Medications and Allergies Home Medications Medication Instructions Recorded Confirmed Type Aspirin EC [Ecotrin Low Dose] 81 mg PO DAILY 10/27/24 10/27/24 History Allergies Allergy/AdvReac Type Severity Reaction Status Date / Time codeine AdvReac Abdominal Verified 10/27/24 14:55 Pain Surgical - Exam Vital Signs Temp Pulse Resp BP Pulse Ox 99.2 F 124 H 18 156/93 95 10/27/24 11:56 10/27/24 11:56 10/27/24 11:56 10/27/24 11:56 10/27/24 11:56 - General well developed, well nourished, no distress, no pain, obese - Eyes PERRL, normal ocular movement, no pale, no icteric - ENT normal pinna, normal nares, normal mucosa, no hearing loss, no congestion, poor mcfp - Neck Neck is supple, no lymph no lymphadenopathy. no masses, no bruits, trachea midline, no venous distension - Respiratory Lung sounds essentially clear throughout. No wheezes, rhonchi or crackles. Respirations are symmetrical and nonlabored. - Cardiovascular Regular rhythm and rate. S1 and S2 present, negative for S3 or gallop. Systolic murmur present, heard best to his right sternal border. No edema present. - Abdomen Abdomen is soft, nontender nondistended. Active bowel sounds present all 4 abdominal quadrants. No guarding or rigidity. No organomegaly appreciated. - Genitourinary Deferred - Rectum Deferred - Integumentary Skin is warm and dry. No clubbing or cyanosis is present. no rash, no growths, no abnormal pigmentation - Neurologic No focal deficits. - Musculoskeletal Moves all 4 extremities with equal strength bilateral. normal gait, normal posture - Psychiatric oriented to time, oriented to person, oriented to place, speech is normal, memory intact Results - Labs 10/28/24 05:18 10/28/24 07:32 Abnormal Lab Results - Last 24 Hours (Table) 10/27/24 10/27/24 10/27/24 Range/Units 13:08 13:08 13:08 WBC 12.5 H (3.8-10.6) k/uL Hgb 17.8 H (13.0-17.5) gm/dL Hct 53.5 H (39.0-53.0) % Neutrophils # 8.9 H (1.3-7.7) k/uL INR (<1.2) APTT (22.0-30.0) sec Potassium (3.5-5.1) mmol/L Glucose 106 H (74-99) mg/dL ALT 103 H (4-49) U/L Troponin I 3.010 H* (0.000-0.034) ng/mL HDL Cholesterol (40.00-60.00) mg/dL TSH (0.465-4.680) mIU/L 10/27/24 10/27/24 10/28/24 Range/Units 19:52 23:08 05:18 WBC (3.8-10.6) k/uL Hgb (13.0-17.5) gm/dL Hct (39.0-53.0) % Neutrophils # (1.3-7.7) k/uL INR (<1.2) APTT (22.0-30.0) sec Potassium (3.5-5.1) mmol/L Glucose 100 H (74-99) mg/dL ALT (4-49) U/L Troponin I 3.940 H* 4.140 H* (0.000-0.034) ng/mL HDL Cholesterol 26.90 L (40.00-60.00) mg/dL TSH (0.465-4.680) mIU/L 10/28/24 10/28/24 Range/Units 07:32 07:32 WBC (3.8-10.6) k/uL Hgb (13.0-17.5) gm/dL Hct (39.0-53.0) % Neutrophils # (1.3-7.7) k/uL INR 1.2 H (<1.2) APTT 48.1 H (22.0-30.0) sec Potassium 5.3 H (3.5-5.1) mmol/L Glucose 142 H (74-99) mg/dL ALT 109 H (4-49) U/L Troponin I (0.000-0.034) ng/mL HDL Cholesterol (40.00-60.00) mg/dL TSH 0.395 L (0.465-4.680) mIU/L Diabetes panel 10/27/24 10/28/24 10/28/24 Range/Units 13:08 05:18 07:32 Sodium 140 137 137 (137-145) mmol/L Potassium 4.7 4.8 5.3 H (3.5-5.1) mmol/L Chloride 105 106 106 (98-107) mmol/L Carbon Dioxide 25 24 23 (22-30) mmol/L BUN 16 17 18 (9-20) mg/dL Creatinine 0.88 0.92 0.77 (0.66-1.25) mg/dL Glucose 106 H 100 H 142 H (74-99) mg/dL Calcium 9.9 9.5 9.6 (8.4-10.2) mg/dL AST 45 51 (17-59) U/L ALT 103 H 109 H (4-49) U/L Alkaline Phosphatase 92 88 (38-126) U/L Total Protein 7.4 6.8 (6.3-8.2) g/dL Albumin 4.8 4.4 (3.5-5.0) g/dL Triglycerides 137.00 (0.00-149.00) mg/dL HDL Cholesterol 26.90 L (40.00-60.00) mg/dL Thyroid panel 10/28/24 Range/Units 07:32 TSH 0.395 L (0.465-4.680) mIU/L Calcium panel 10/27/24 10/28/24 10/28/24 Range/Units 13:08 05:18 07:32 Calcium 9.9 9.5 9.6 (8.4-10.2) mg/dL Albumin 4.8 4.4 (3.5-5.0) g/dL Pituitary panel 10/27/24 10/28/24 10/28/24 Range/Units 13:08 05:18 07:32 Sodium 140 137 137 (137-145) mmol/L Potassium 4.7 4.8 5.3 H (3.5-5.1) mmol/L Chloride 105 106 106 (98-107) mmol/L Carbon Dioxide 25 24 23 (22-30) mmol/L BUN 16 17 18 (9-20) mg/dL Creatinine 0.88 0.92 0.77 (0.66-1.25) mg/dL Glucose 106 H 100 H 142 H (74-99) mg/dL Calcium 9.9 9.5 9.6 (8.4-10.2) mg/dL TSH 0.395 L (0.465-4.680) mIU/L Adrenal panel 10/27/24 10/28/24 10/28/24 Range/Units 13:08 05:18 07:32 Sodium 140 137 137 (137-145) mmol/L Potassium 4.7 4.8 5.3 H (3.5-5.1) mmol/L Chloride 105 106 106 (98-107) mmol/L Carbon Dioxide 25 24 23 (22-30) mmol/L BUN 16 17 18 (9-20) mg/dL Creatinine 0.88 0.92 0.77 (0.66-1.25) mg/dL Glucose 106 H 100 H 142 H (74-99) mg/dL Calcium 9.9 9.5 9.6 (8.4-10.2) mg/dL Total Bilirubin 0.6 0.8 (0.2-1.3) mg/dL AST 45 51 (17-59) U/L ALT 103 H 109 H (4-49) U/L Alkaline Phosphatase 92 88 (38-126) U/L Total Protein 7.4 6.8 (6.3-8.2) g/dL Albumin 4.8 4.4 (3.5-5.0) g/dL - Imaging Chest x-ray: report reviewed, image reviewed Additional studies: Cardiac catheterization films reviewed by Dr. Javier Jose. Assessment and Plan Assessment: Coronary artery disease Acute non-ST elevated myocardial infarction this admission History of hypertension History of B-cell lymphoma Obesity with a BMI of 36.6 kg/m Chronic ongoing tobacco dependence, smokes 2 packs of cigarettes per day Family history of early onset coronary artery disease with his grandfather dying at age 55 from a myocardial infarction Plan: The patient was seen and examined at his bedside in the intensive care unit. His chart and diagnostics were reviewed. His case was discussed in detail with Dr. Javier Jose from cardiothoracic surgery. The usual course of myocardial vascularization surgery was discussed with the patient in detail. The importance of smoking cessation and risk modification has been discussed with the patient. Preoperative teaching and preoperative testing has been initiated. A clinical frailty score has been calculated with a score equaling 2. A 5 m walk test has been completed with the patient, time 1: 2.61 Seconds, time 2: 2.60 Seconds, time 3: 2.55 Seconds. The patient tolerated the walk well and denies any complaints at this time. Once the patient's preoperative testing has been completed and results obtained and STS risk or will be calculated and discussed with the patient. Continue to maximize medical management with aspirin, statin and beta-nguyễn. Heparin drip management and recommendations per cardiology. Medical management of other comorbidities per primary care and cardiology. More recommendations to follow based on patient's clinical course and as his preoperative testing has been completed. Transthoracic 2D echocardiogram results remain pending. An Nilay's test was completed to the patient's left wrist compressing the radial and ulnar artery, the Nilay's test was positive with return of circulation less than [address]. [address] Bronson for this consult and we look forward to working with you in the care of this patient. I have personally seen and examined the patient, performed the documentation and the assessment and plan as written. Number of minutes spent on the visit: 30. MAXIM Vigil
--- NOTE | 2024-10-28 10:29 | US ---
EXAMINATION TYPE: US arterial LE single level DATE OF EXAM: 10/28/2024 10:21 AM COMPARISONS: None. CLINICAL INDICATION: Male, 59 years old with history of Ankle Brachial Index (MICHELLE) ; [place] TECHNIQUE: Systolic pressures were taken of the upper and lower extremity arteries with ankle-brachia l indices and toe brachial indices calculated bilaterally. History of: Smoker: Current Smoker Hypertension: Yes Diabetic: No Hyperlipidemia: No TIA/CVA: No Previous Vascular Surgery: No CAD: No MN: Yes Vascular Ulcers: No Claudication: No Gangrene: No FINDINGS: Doppler Waveforms: Right: Multiphasic Left: Multiphasic Brachial Artery systolic pressure: Right: Unable to obtain. Right radial approach Left: 134 Posterior Tibial artery systolic pressure: Right: 164 Left: 157 Dorsalis Pedis artery systolic pressure: Right: 165 Left: 160 Ankle-Brachial Indices: Right: 1.23 Left: 1.19 IMPRESSION: MICHELLE: Right: Normal 0.9 - 1.4, Recommendation: None Left: Normal 0.9 - 1.4, Recommendation: None [facility], , 10/28/2024 10:26 AM
[2024-10-28 10:40] LABS: Hepatitis A Antibody IgM Nonreactive (Nonreactive)
[2024-10-28 10:41] LABS: Hepatitis B Core IgM Nonreactive (Nonreactive); Hepatitis B Surface Antigen Nonreactive (Nonreactive); Hepatitis C IgG Antibody Nonreactive (Nonreactive)
[2024-10-28 10:55] LABS: T4, Free (Free Thyroxine) 1.57 ng/dL (0.78-2.19)
--- NOTE | 2024-10-28 11:36 | CT ---
EXAMINATION TYPE: CT chest wo con DATE OF EXAM: 10/28/2024 COMPARISON: NONE CLINICAL INDICATION: Male, 59 years old with history of Preop cardiac surgery, evaluate aorta, Preop cardiac surgery, evaluate aorta TECHNIQUE: CT scan of the thorax is performed without IV contrast. CT DLP: 582.7 mGycm. Automated Exposure Control for Dose Reduction was Utilized. FINDINGS: LUNGS: Mild linear scarring in the lateral left midlung and bilateral lung bases. No suspicious focal consolidation. No pleural effusion or pneumothorax seen bilaterally HEART: Size upper limits of normal. Mild coronary artery calcifications present. MEDIASTINUM: Lack of IV contrast is noted to limit evaluation for mediastinal and especially hilar ad enopathy. There are no definitive greater than 1 cm mediastinal lymph nodes. Fairly moderate size per icardial effusion is seen measuring 2.3 cm in thickness axial image 76. No significant calcification along the aortic valve. Mild peripheral calcified plaque ascending aorta measuring up to 4.2 cm in di ameter. Normal 3 vessel origin from the aortic arch. OTHER: Visualized liver is diffusely hypodense consistent with diffuse fatty infiltration or hepatoce llular disease. IMPRESSION: As above. [facility], , 10/28/2024 11:33 AM
[2024-10-28] MEDS: MUPIROCIN 2% OINT 22 GM TUBE NASAL SCH (11:50)
--- NOTE | 2024-10-28 12:13 | CA ---
Transthoracic Echo Report Name: Jaydon Jean Age: 59 Gender: M : 1965 Exam Date: 10/28/2024 07:34 Exam Location: [facility] Ht (in): 71 Wt (lb): 260 Ordering Physician: Geraldo Bronson MD ([id number]) Attending/Referring Phys: Center Director Lead Teacher Radha Gagnon RDCS Procedure CPT: Indications: ACS Cardiac Hx: Technical Quality: Fair Contrast 1: Total Dose (mL): Contrast 2: Total Dose (mL): MEASUREMENTS (Male / Female) Normal Values 2D ECHO LV Diastolic Diameter PLAX 5.6 cm 4.2 - 5.9 / 3.9 - 5.3 cm LV Systolic Diameter PLAX 5.2 cm IVS Diastolic Thickness 1.0 cm 0.6 - 1.0 / 0.6 - 0.9 cm LVPW Diastolic Thickness 1.1 cm 0.6 - 1.0 / 0.6 - 0.9 cm LV Relative Wall Thickness 0.4 LVOT Diameter 1.8 cm LV Diastolic Volume MOD BP 172.3 cm??? 67 - 155 / 56 - 104 cm??? LV Systolic Volume MOD BP 101.8 cm??? 22 - 58 / 19 - 49 cm??? LV Ejection Fraction MOD BP 40.9 % >= 55 % LV Cardiac Index MOD BP 2848.6 cm???/min???m??? LV Diastolic Volume MOD 4C 165.4 cm??? LV Systolic Volume MOD 4C 91.7 cm??? LV Ejection Fraction MOD 4C 44.5 % LV Cardiac Index MOD 4C 2976.5 cm???/min???m??? LV Diastolic Length 4C 9.4 cm LV Systolic Length 4C 9.0 cm LV Diastolic Volume MOD 2C 170.8 cm??? LV Systolic Volume MOD 2C 111.9 cm??? LV Ejection Fraction MOD 2C 34.5 % LV Cardiac Index MOD 2C 2380.6 cm???/min???m??? LV Diastolic Length 2C 9.9 cm LV Systolic Length 2C 8.8 cm LA Volume 104.4 cm??? 18 - 58 / 22 - 52 cm??? LA Volume Index 42.2 cm???/m??? 16 - 28 cm???/m??? DOPPLER AV Peak Velocity 160.5 cm/s AV Peak Gradient 10.3 mmHg AV Mean Velocity 99.3 cm/s AV Mean Gradient 4.6 mmHg AV Velocity Time Integral 24.2 cm LVOT Peak Velocity 120.6 cm/s LVOT Peak Gradient 5.8 mmHg LVOT Velocity Time Integral 18.8 cm LVOT Stroke Volume 46.9 cm??? LVOT Stroke Volume Index 19.9 ml/m??? LVOT Cardiac Index 1895.6 cm???/min???m??? AV Area Cont Eq vti 1.9 cm??? AV Area Cont Eq pk 1.9 cm??? MV Area PHT 6.1 cm??? Mitral E Point Velocity 56.6 cm/s Mitral A Point Velocity 69.5 cm/s Mitral E to A Ratio 0.8 MV Deceleration Time 124.3 ms PV Peak Velocity 115.0 cm/s PV Peak Gradient 5.3 mmHg FINDINGS Left Ventricle Left ventricular ejection fraction is estimated at 40-45 %. Mildly increased left ventricular diastolic volume. Severely increased left ventricular systolic volume. Moderately decreased left ventricular ejection fraction with regional variability. Anterior wall hypokinesis. Apical lateral and septal akinesis. Right Ventricle Mild right ventricular dilatation. Mild to moderately reduced right ventricular global systolic function. Unable to estimate the right ventricular systolic pressure. Right Atrium Mild right atrial dilatation. Left Atrium Severely increased left atrial volume. Mildly increased left atrial area. Mitral Valve Mitral valve thickened. No evidence for mitral valve prolapse. No mitral stenosis. Trace mitral regurgitation. Aortic Valve Trileaflet aortic valve. Focal thickening of the aortic valve cusps. No aortic valve stenosis or regurgitation. Tricuspid Valve Structurally normal tricuspid valve. No tricuspid stenosis. Trace tricuspid regurgitation. Pulmonic Valve Structurally normal pulmonic valve. No pulmonic stenosis. No pulmonic regurgitation. Pericardium Moderate pericardial effusion. Respiratory variation of mitral flow. Aorta Normal size aortic root and proximal ascending aorta. CONCLUSIONS Moderate to large amount of pericardial effusion without any tamponade Moderate LV systolic dysfunction with anteroseptal hypokinesis Biatrial enlargement Mild mitral regurgitation Previewed by: Dr. Richi Lee MD (Electronically Signed) Final Date: 28 October 2024 12:12
[2024-10-28] MEDS ORDERED: NITROGLYCERIN SL TABS 0.4 MG TAB SUBLINGUAL PRN (15:20)
[2024-10-28] MEDS ORDERED: ALPRAZolam 0.5 MG TAB PO PRN (15:20)
[2024-10-28] MEDS ORDERED: ALPRAZolam 0.25 MG TAB PO PRN (15:20)
--- NOTE | 2024-10-28 15:31 | P.HPIM ---
History of Present Illness H&P Date: 10/27/24 Chief Complaint: Chest pain 59-year-old male, with history of hypertension, hyperlipidemia, smoking, who has not been into see a physician in 8 years, who presents to the emergency department stating he never sees a doctor so he does not know what medical problems he has. Patient states his blood pressure though has been high for years. Patient states for the last week every time he eats he starts to feel like a fullness in his chest and it lasts for a while and then eventually subsides. Patient states he has no problem swallowing or eating and it does not happen immediately after he eats that happens a little bit after he is finished eating. Patient denies any nausea vomiting diarrhea. Patient states he has some difficulty breathing when this occurs but once it subsides his difficulty breathing is gone. Patient states he continues to smoke. 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 Patient denies any leg pain or calf pain or increased swelling in the legs. Blood work completed in ED reveals a WBC of 12.5, hemoglobin of 17.8 and platelet count of 340, sodium 140, potassium 4.7, BUNs/creatinine 16/0.88 and blood glucose of 106, troponin is elevated at 3.010 EKG shows sinus tachycardia at 122 bpm [place] interval 148 QRS is 90 QT interval is 276 QTc is 349. Patient's EKG shows no ST segment elevation. Patient does have some T wave inversions in 1 and aVF. Patient also has Q waves in inferior and anterior leads -- Given acute non-ST elevation CO, patient was discussed with cardiology and is being taken to the [facility] Review of Systems REVIEW OF SYSTEMS: CONSTITUTIONAL: No fever, no malaise, no fatigue. HEENT: No recent visual problems or hearing problems. Denied any sore throat. CARDIOVASCULAR: Chest pain PULMONARY: No shortness of breath, no cough, no hemoptysis. GASTROINTESTINAL: No diarrhea, no nausea, no vomiting, no abdominal pain. NEUROLOGICAL: No headaches, no weakness, no numbness. HEMATOLOGICAL: Denies any bleeding or petechiae. GENITOURINARY: Denies any burning micturition, frequency, or urgency. MUSCULOSKELETAL/RHEUMATOLOGICAL: Denies any joint pain, swelling, or any muscle pain. ENDOCRINE: Denies any polyuria or polydipsia. The rest of the 14-point review of systems is negative. Past Medical History Past Medical History: No Reported History History of Any Multi-Drug Resistant Organisms: None Reported Past Surgical History: Orthopedic Surgery Additional Past Surgical History / Comment(s): shoulder Past Anesthesia/Blood Transfusion Reactions: No Reported Reaction Past Psychological History: No Psychological Hx Reported Smoking Status: Current every day smoker Past Alcohol Use History: None Reported Past Drug Use History: None Reported - Past Family History Father Family Medical History: Myocardial Infarction (CO) Medications and Allergies Home Medications Medication Instructions Recorded Confirmed Type Aspirin EC [Ecotrin Low Dose] 81 mg PO DAILY 10/27/24 10/27/24 History Allergies Allergy/AdvReac Type Severity Reaction Status Date / Time codeine AdvReac Abdominal Verified 10/27/24 14:55 Pain Physical Exam Vitals: Vital Signs Temp Pulse Resp BP Pulse Ox 10/27/24 14:42 123 H 17 167/107 93 L 10/27/24 13:24 98.0 F 124 H 17 146/94 95 10/27/24 11:56 99.2 F 124 H 18 156/93 95 Intake and Output 10/27/24 10/27/24 10/27/24 06:59 14:59 22:59 Other: Weight 117.934 kg GENERAL:Patient is well-developed and well-nourished. Patient is nontoxic and well-hydrated and is in mild distress. ENT:Neck is soft and supple. No significant lymphadenopathy is noted. Oropharynx is clear. Moist mucous membranes. Neck has full range of motion without eliciting any pain. EYES:The sclera were anicteric and conjunctiva were pink and moist. Extraocular movements were intact and pupils were equal round and reactive to light. Eyeli ds were unremarkable. PULMONARY:Unlabored respirations. Good breath sounds bilaterally. No audible rales rhonchi or wheezing was noted. CARDIOVASCULAR:Patient is tachycardic at 120 beats a minute ABDOMEN:Soft and nontender with normal bowel sounds. SKIN:Skin is clear with no lesions or rashes and otherwise unremarkable. NEUROLOGIC:Patient is alert and oriented x3. Cranial nerves II through XII are grossly intact. Motor and sensory are also intact. Normal speech, volume and content. Symmetrical smile. MUSCULOSKELETAL:Normal extremities with adequate strength and full range of motion. PSYCHIATRIC:Normal psychiatric evaluation. Results CBC & Chem 7: 10/28/24 05:18 10/28/24 07:32 Labs: Abnormal Lab Results - Last 24 Hours (Table) 10/27/24 10/27/24 10/27/24 Range/Units 13:08 13:08 13:08 WBC 12.5 H (3.8-10.6) k/uL Hgb 17.8 H (13.0-17.5) gm/dL Hct 53.5 H (39.0-53.0) % Neutrophils # 8.9 H (1.3-7.7) k/uL Glucose 106 H (74-99) mg/dL ALT 103 H (4-49) U/L Troponin I 3.010 H* (0.000-0.034) ng/mL Assessment and Plan Assessment: 1. Acute non-ST elevation CO -EKG completed in ED reveals sinus tachycardia with no acute ST elevation but does reveal T wave inversion in 1 and aVF and also Q waves in inferior and a nterior leads -- Troponin elevated at 3.010 -Patient is placed on IV heparin infusion; received aspirin -Has been evaluated by cardiology and is being taken to [facility] 2. Mild leukocytosis; white blood count elevated at 12.5; patient denies any history of chest congestion or any urinary symptoms -Leukocytosis likely reactive -We will monitor CBC and make recommendations accordingly 3. History of hypertension; patient has not been in to see a physician in 8 years and is not being treated at this time 4. History of hyperlipidemia; not on any statin therapy at this time 5. Longstanding history of smoking; counseling done for need for smoking cessation DVT prophylaxis; IV heparin CODE STATUS; full code
--- NOTE | 2024-10-28 15:32 | P.PN ---
Subjective Progress Note Date: 10/28/24 59-year-old male, with history of hypertension, hyperlipidemia, smoking, who has not been into see a physician in 8 years, who presents to the emergency department stating he never sees a doctor so he does not know what medical problems he has. Patient states his blood pressure though has been high for y ears. Patient states for the last week every time he eats he starts to feel like a fullness in his chest and it lasts for a while and then eventually subsides. Patient states he has no problem swallowing or eating and it does not happen immediately after he eats that happens a little bit after he is finished eating. Patient denies any nausea vomiting diarrhea. Patient states he has some difficulty breathing when this occurs but once it subsides his difficulty breathing is gone. Patient states he continues to smoke. 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 Patient denies any leg pain or calf pain or increased swelling in the legs. Blood work completed in ED reveals a WBC of 12.5, hemoglobin of 17.8 and platelet count of 340, sodium 140, potassium 4.7, BUNs/creatinine 16/0.88 and blood glucose of 106, troponin is elevated at 3.010 EKG shows sinus tachycardia at 122 bpm [place] interval 148 QRS is 90 QT interval is 276 QTc is 349. Patient's EKG shows no ST segment elevation. Patient does have some T wave inversions in 1 and aVF. Patient also has Q waves in inferior and anterior leads -- Given acute non-ST elevation [place], patient was discussed with cardiology and is being taken to the [facility] patient underwent a heart catheterization which revealed severe tow-vessel CAD with occluded LCx and critical disease involving the LAD and intermediate disease involving the right coronary artery. Cardiothoracic surgery is consulted. An echocardiogram was ordered and is still pending. Objective - Vital Signs Vital signs: Vital Signs Temp 97.7 F 10/28/24 08:00 Pulse 92 10/28/24 10:00 Resp 15 10/28/24 10:00 BP 137/91 10/28/24 10:00 Pulse Ox 93 L 10/28/24 10:00 FiO2 Intake & Output 10/27/24 10/28/24 10/28/24 18:59 06:59 18:59 Intake Total 391.167 373.833 500 Output Total 375 1150 400 Balance 16.167 -776.167 100 Weight 120.4 kg 119 kg Intake: IV 350 300 Sodium Chloride 0.9% 1, 300 000 ml @ 75 mls/hr IV . [id number] [facility] Rx#:[id number] Intake, IV Titration 41.167 73.833 Amount Heparin Sod,Pork in 0.45% 41.167 73.833 NaCl 25,000 unit In 0.45 % NaCl 1 250ml.bag @ 8. 479 UNITS/KG/HR 10 mls/hr IV .Q24H [facility] Rx#: [id number] Oral 500 Output: Urine 375 1150 400 Other: Voiding Method Urinal Urinal - Exam GENERAL:Patient is well-developed and well-nourished. Patient is nontoxic and well-hydrated and is in mild distress. ENT:Neck is soft and supple. No significant lymphadenopathy is noted. Oropharynx is clear. Moist mucous membranes. Neck has full range of motion without eliciting any pain. EYES:The sclera were anicteric and conjunctiva were pink and moist. Extraocular movements were intact and pupils were equal round and reactive to light. Eyelids were unremarkable. PULMONARY:Unlabored respirations. Good breath sounds bilaterally. No audible rales rhonchi or wheezing was noted. CARDIOVASCULAR:Patient is tachycardic at 120 beats a minute ABDOMEN:Soft and nontender with normal bowel sounds. SKIN:Skin is clear with no lesions or rashes and otherwise unremarkable. NEUROLOGIC:Patient is alert and oriented x3. Cranial nerves II through XII are grossly intact. Motor and sensory are also intact. Normal speech, volume and content. Symmetrical smile. MUSCULOSKELETAL:Normal extremities with adequate strength and full range of motion. PSYCHIATRIC:Normal psychiatric evaluation. - Labs CBC & Chem 7: 10/28/24 05:18 10/28/24 07:32 Labs: Abnormal Lab Results - Last 24 Hours (Table) 10/27/24 10/27/24 10/27/24 Range/Units 13:08 13:08 13:08 WBC 12.5 H (3.8-10.6) k/uL Hgb 17.8 H (13.0-17.5) gm/dL Hct 53.5 H (39.0-53.0) % Neutrophils # 8.9 H (1.3-7.7) k/uL INR (<1.2) APTT (22.0-30.0) sec Potassium (3.5-5.1) mmol/L Glucose 106 H (74-99) mg/dL ALT 103 H (4-49) U/L Troponin I 3.010 H* (0.000-0.034) ng/mL HDL Cholesterol (40.00-60.00) mg/dL TSH (0.465-4.680) mIU/L 10/27/24 10/27/24 10/28/24 Range/Units 19:52 23:08 05:18 WBC (3.8-10.6) k/uL Hgb (13.0-17.5) gm/dL Hct (39.0-53.0) % Neutrophils # (1.3-7.7) k/uL INR (<1.2) APTT (22.0-30.0) sec Potassium (3.5-5.1) mmol/L Glucose 100 H (74-99) mg/dL ALT (4-49) U/L Troponin I 3.940 H* 4.140 H* (0.000-0.034) ng/mL HDL Cholesterol 26.90 L (40.00-60.00) mg/dL TSH (0.465-4.680) mIU/L 10/28/24 10/28/24 Range/Units 07:32 07:32 WBC (3.8-10.6) k/uL Hgb (13.0-17.5) gm/dL Hct (39.0-53.0) % Neutrophils # (1.3-7.7) k/uL INR 1.2 H (<1.2) APTT 48.1 H (22.0-30.0) sec Potassium 5.3 H (3.5-5.1) mmol/L Glucose 142 H (74-99) mg/dL ALT 109 H (4-49) U/L Troponin I (0.000-0.034) ng/mL HDL Cholesterol (40.00-60.00) mg/dL TSH 0.395 L (0.465-4.680) mIU/L Assessment and Plan Assessment: 1. Acute non-ST elevation [place] -EKG completed in ED reveals sinus tachycardia with no acute ST elevation but does reveal T wave inversion in 1 and aVF and also Q waves in inferior and anterior leads -- Troponin elevated at 3.010 -Patient is placed on IV heparin infusion; received aspirin -Has been evaluated by cardiology and is being taken to [facility] 2. Mild leukocytosis; white blood count elevated at 12.5; patient denies any history of chest congestion or any urinary symptoms -Leukocytosis likely reactive -We will monitor CBC and make recommendations accordingly 3. History of hypertension; patient has not been in to see a physician in 8 years and is not being treated at this time 4. History of hyperlipidemia; not on any statin therapy at this time 5. Longstanding history of smoking; counseling done for need for smoking cessation DVT prophylaxis; IV heparin CODE STATUS; full code
[2024-10-29] MEDS: ATORVASTATIN 80 MG TAB PO ONE (04:54)
[2024-10-29] MEDS: ASPIRIN 325 MG TAB PO ONE (04:54)
--- NOTE | 2024-10-29 06:35 | P.PN ---
Subjective Progress Note Date: 10/29/24 The patient is a very pleasant 59-year-old gentleman who did not see a physician or primary care physician in more than 8 years with a past medical history significant for hypertension and dyslipidemia and smoking presented to the hospital complaining of chest discomfort started a week ago. He was experi encing discomfort in the middle of the chest as a pressure on the chest with no radiation to the arm or neck or shoulders or back and no associated symptoms of any shortness of breath or sweating or dizziness or lightheadedness or any presyncope or syncope he underwent further evaluation in the ER including EKG showing Q waves anteriorly and troponin came in to be abnormal and concerning for acute coronary event with chest x-ray did not show any acute abnormalities. Subsequently the patient underwent a heart catheterization which revealed severe tow-vessel CAD with occluded LCx and critical disease involving the LAD and intermediate disease involving the right coronary artery. At that point we consulted surgery to see the patient the patient is in process of seeing seen by cardiothoracic surgical team. An echocardiogram was ordered and is still pending. The physical examination is remarkable for regular rhythm with a soft systolic murmur and clear breathing sounds bilaterally and no edema was noted. October 28, 2024 The patient was seen and evaluated this morning with he has been asymptomatic throughout the night. Hemodynamically he is stable. He is back on heparin IV. Beside that he is on aspirin and high intensity statin and beta-nguyễn and ESTHER inhibitor. The echo still pending. The physical examination is remarkable for regular rhythm and soft systolic murmur and clear breathing sounds bilaterally and no edema was noted in the lower extremities October 29, 2024 The patient was seen and evaluated this morning with he is asymptomatic on heparin IV and he is hemodynamically stable. He was seen by the surgeon yesterday and he refused to undergo an open heart surgery. The plan is to pursue with percutaneous coronary intervention later on today probably with adju nctive use of mechanical support. The echo showed cardiomyopathy with moderate pericardial effusion. The physical examination is remarkable for regular rhythm with a soft systolic murmur and clear breathing sounds bilaterally and no edema was noted Assessment Acute coronary syndrome Severe CAD as described above History of smoking Pericardial effusion Cardiomyopathy Plan Add colchicine to the current medical regimen Continue the current medical regimen Plan for PCI later on today Objective - Vital Signs Vital signs: Vital Signs Temp 98.7 F 10/29/24 04:00 Pulse 88 10/29/24 04:00 Resp 15 10/29/24 04:00 BP 121/72 10/29/24 04:00 Pulse Ox 94 L 10/29/24 04:00 FiO2 Intake & Output 10/28/24 10/28/24 10/29/24 06:59 18:59 06:59 Intake Total 373.833 635.000 813.688 Output Total 1150 600 Balance -776.167 35.000 813.688 Weight 119 kg 120.7 kg Intake: IV 300 433 0.9 KVO 80 Sodium Chloride 0.9% 1, 300 000 ml @ 75 mls/hr IV . [id number] [facility] Rx#:[id number] Sodium Chloride 0.9% 1, 353 000 ml In Empty Bag 1 bag @ 1 ML/KG/HR 117.934 mls /hr IV .[id number] [facility] Rx#: [id number] Intake, IV Titration 73.833 135.000 230.688 Amount Heparin Sod,Pork in 0.45% 73.833 135.000 230.688 NaCl 25,000 unit In 0.45 % NaCl 1 250ml.bag @ 8. 479 UNITS/KG/HR 10 mls/hr IV .Q24H [facility] Rx#: [id number] Oral 500 150 Output: Urine 1150 600 Other: Voiding Method Urinal Urinal Toilet Urinal # Voids 1 1 - Labs CBC & Chem 7: 10/28/24 05:18 10/28/24 07:32 Labs: Abnormal Lab Results - Last 24 Hours (Table) 10/28/24 10/28/24 10/28/24 Range/Units 05:18 07:32 07:32 INR 1.2 H (<1.2) APTT 48.1 H (22.0-30.0) sec Potassium 5.3 H (3.5-5.1) mmol/L Glucose 142 H (74-99) mg/dL ALT 109 H (4-49) U/L Troponin I (0.000-0.034) ng/mL HDL Cholesterol 26.90 L (40.00-60.00) mg/dL TSH 0.395 L (0.465-4.680) mIU/L 10/28/24 10/28/24 10/29/24 Range/Units 07:32 19:27 01:57 INR (<1.2) APTT 34.5 H 46.7 H (22.0-30.0) sec Potassium (3.5-5.1) mmol/L Glucose (74-99) mg/dL ALT (4-49) U/L Troponin I 4.250 H* (0.000-0.034) ng/mL HDL Cholesterol (40.00-60.00) mg/dL TSH (0.465-4.680) mIU/L
[2024-10-29] MEDS ORDERED: HEPARIN SODIUM,PORCINE (1 ML) 2,500 UNIT in SODIUM CHLORIDE 0.9% 250 ML IRRIGATION PRN (07:00)
[2024-10-29] MEDS ORDERED: HEPARIN SODIUM,PORCINE 10,000 UNIT in SODIUM CHLORIDE 0.9% 1,000 ML IRRIGATION PRN (07:00)
[2024-10-29] MEDS: COLCHICINE 0.6 MG EACH PO SCH (07:00)
[2024-10-29] MEDS: HEPARIN SODIUM,PORCINE 10,000 UNIT in SODIUM CHLORIDE 0.9% 1,000 ML IRRIGATION ONE (12:08)
[2024-10-29] MEDS: HEPARIN SODIUM,PORCINE (1 ML) 2,500 UNIT in SODIUM CHLORIDE 0.9% 250 ML IRRIGATION ONE (12:08)
[2024-10-29] MEDS: SODIUM CHLORIDE 0.9% 1,000 ML IV ONE (12:08)
[2024-10-29] MEDS: MIDAZOLAM 2 MG/2 ML VIAL IVP ONE ×3 (12:36→13:46)
[2024-10-29] MEDS: LIDOCAINE 1% INJ 10MG/ML (20 ML MDV) SQ ONE (12:40)
[2024-10-29] MEDS: fentaNYL (PF) 50 MCG/ML 2 ML AMP IVP ONE ×3 (12:43→13:50)
[2024-10-29] MEDS: HEPARIN SODIUM 1,000 UN/ML (10ML VL) IVP ONE ×2 (12:59→13:18)
[2024-10-29] MEDS: TICAGRELOR 90 MG TAB PO ONE (13:03)
[2024-10-29] MEDS: HYDROmorphone 0.5 MG/0.5 ML SYRINGE IVP ONE (13:55)
[2024-10-29] MEDS: IOPAMIDOL-370 100ML BTL INJ ONE (14:00)
[2024-10-29] MEDS ORDERED: RX INFO: IV CONTRAST WAS GIVEN 1 EACH MISC MISCELLANE PRN (14:13)
[2024-10-29] MEDS: NITROGLYCERIN-D5W PMX 50 MG in DEXTROSE/WATER 1 250ML.BAG IV ONE (14:13)
[2024-10-29] MEDS ORDERED: ATROPINE SULFATE 0.1 MG/ML 10ML SYRINGE IV PRN (14:13)
[2024-10-29] MEDS: NITROGLYCERIN-D5W PMX 50 MG in DEXTROSE/WATER 1 250ML.BAG IV SCH (15:09)
--- NOTE | 2024-10-29 18:31 | P.PCN ---
Date of Procedure: 10/29/24 Operative Findings: PERCUTANEOUS CORONARY INTERVENTION Performing physician Geraldo Bronson M.D. Procedure Performed: 1. Successful stenting of the mid LAD using 4.0 x 28 mm Xience drug-eluting stent with an excellent angiographic results. 2. Adjunctive use of IVUS as well as Impella CP 3. Ultrasound-guided access of the right common femoral artery and selective right common femoral artery angiogram Indication: Severe coronary artery disease in this 59-year-old gentleman who was admitted to the hospital with chest discomfort and underwent a heart catheterization which revealed critical disease involving the LAD and occluded left circumflex coronary artery. He was seen by the surgical team and the decision was made toward percutaneous coronary intervention. Approach: Right common femoral artery Complications: None Level of Sedation: Moderate with a sedation length of 62 minutes Procedure Discussion: After obtaining informed consent the patient was brought to the cardiac [facility]. The right common femoral artery was cannulated using micropuncture technique under ultrasound guidance a micropuncture wire passed easily then I placed the micropuncture sheath over the micropuncture wire and I did selective right common femoral artery angiogram to prove that the entry was in the midsh aft of the common femoral artery. With that I did exchange my micropuncture sheath into a 6 Czech 11 cm sheath over a 035 wire. Subsequently I preclose the right common femoral artery using 2 Perclose devices. That was performed at 10:00 and 2:00. After that an 8 Czech sheath was placed and subsequently it was secured and flushed. Using a pigtail catheter I did exchanged my regular 035 wire into a stiff 035 wire. After that attempting advancing a 14 Czech 11 cm sheath was initially unsuccessful but was successful after we dilated the right common femoral artery using a 10 Czech dilator. At that point anticoagulation was initiated using heparin with continuous ACT monitoring. After that I did across the aortic valve using a pigtail catheter with 035 wire then I did pull the 035 wire out and I did advance the Impella CP wire which was 018 wire and the pigtail catheter was withdrawn out. Under fluoroscopy guidance the Impella was advanced to the left ventricle and it was secured. No ectopy noted after that. Subsequently I did access the 14 Czech sheath between 10:00 and 12:00 using micropuncture needle and a micropuncture wire passed easily then I placed an 035 wire and did advance a 7 Czech 23 cm sheath inside 14 Czech sheath. Subsequently the second sheath was flushed and secured. I did engage the left main using an EBU 3.75 guiding catheter. The patient at that point loaded using Brilinta. After that I did across the lesion in the LAD using an 014 whisper wire with the backup support of Corsair catheter. Subsequently the catheter was advanced over the wire to the distal LAD then I did exchange my whisper into a run-through wire. IVUS was performed and showed a soft lesion. Predilatation was performed using; pliant balloon before I deployed 4.0 x 28 mm stent which was postdilated using 6 mm NC balloon. Final angiogram showed good angiographic results. After that and briefly I attempted to cross the lesion in the left circumflex but the patient was having chest discomfort and at that point I pulled the wire out and they took a picture which showed what is seems to be spasm in the mid LAD distal to the stented segment resolved completely after giving the patient some nitroglycerin IC. At that point the procedure was completed with no complication. The Impella CP was pulled from the left ventricle and subsequently outside the sheath. The second sheath was pulled out as well. I was able to achieve good hemostasis at the right common femoral artery using the 2 Perclose devices from before and at that point the procedure was completed with no complication Postprocedure Management: 1. Dual antiplatelet therapy using aspirin and Brilinta for at least 12-month 2. Aggressive cholesterol control 3. Risk factors modification
[2024-10-29] MEDS: TICAGRELOR 90 MG TAB PO SCH (20:14)
[2024-10-30] MEDS: MAG HYDROX/AL HYDROX/SIMETH 30 ML CUP PO PRN (00:05)
[2024-10-30] MEDS: ACETAMINOPHEN TAB 325 MG TAB PO PRN (00:05)
[2024-10-30] MEDS: ZOLPIDEM 5 MG TAB PO PRN (02:57)
[2024-10-30 03:55] LABS: Basophils % (A) 0 %; Eosinophils # (A) 0.3 k/uL (0-0.7); Eosinophils % (A) 2 %; HGB 15.5 gm/dL (13.0-17.5); Lymphocytes # (A) 1.3 k/uL (1.0-4.8); Lymphocytes % (A) 10 %; MCH 31.4 pg (25.0-35.0); MCHC 32.9 g/dL (31.0-37.0); MCV 95.4 fL (80.0-100.0); Mean Platelet Volume 7.4; Monocytes # (A) 0.9 k/uL (0-1.0); Monocytes % (A) 7 %; Neutrophils # (A) 10.1 k/uL (1.3-7.7); Neutrophils % (A) 79 %; Platelet Count 279 k/uL (150-450); RBC 4.93 m/uL (4.30-5.90); RDW 13.1 % (11.5-15.5); WBC 12.7 k/uL (3.8-10.6)
[2024-10-30 04:40] LABS: African American GFR (CKD) >90 (>60 ml/min/1.73 sqM); Anion Gap 10 mmol/L; Blood Urea Nitrogen 16 mg/dL (9-20); Calcium 9.4 mg/dL (8.4-10.2); Carbon Dioxide 21 mmol/L (22-30); Chloride 103 mmol/L (98-107); Glucose 132 mg/dL (74-99); Non-African American GFR(CKD) >90 (>60 ml/min/1.73 sqM); Potassium 4.1 mmol/L (3.5-5.1); Sodium 134 mmol/L (137-145)
[2024-10-30] MEDS: ASPIRIN 81 MG PO SCH (08:26)
[2024-10-30 11:39] VITALS: BMI 36.6
[2024-10-30] MEDS: ONDANSETRON 4 MG/2 ML VIAL IVP PRN (12:47)
--- NOTE | 2024-10-30 15:13 | P.PN ---
Subjective Progress Note Date: 10/30/24 The patient is a very pleasant 59-year-old gentleman who did not see a physician or primary care physician in more than 8 years with a past medical history significant for hypertension and dyslipidemia and smoking presented to the hospital complaining of chest discomfort started a week ago. He was experi encing discomfort in the middle of the chest as a pressure on the chest with no radiation to the arm or neck or shoulders or back and no associated symptoms of any shortness of breath or sweating or dizziness or lightheadedness or any presyncope or syncope he underwent further evaluation in the ER including EKG showing Q waves anteriorly and troponin came in to be abnormal and concerning for acute coronary event with chest x-ray did not show any acute abnormalities. Subsequently the patient underwent a heart catheterization which revealed severe tow-vessel CAD with occluded LCx and critical disease involving the LAD and intermediate disease involving the right coronary artery. At that point we consulted surgery to see the patient the patient is in process of seeing seen by cardiothoracic surgical team. An echocardiogram was ordered and is still pending. The physical examination is remarkable for regular rhythm with a soft systolic murmur and clear breathing sounds bilaterally and no edema was noted. October 28, 2024 The patient was seen and evaluated this morning with he has been asymptomatic throughout the night. Hemodynamically he is stable. He is back on heparin IV. Beside that he is on aspirin and high intensity statin and beta-nguyễn and ESTHER inhibitor. The echo still pending. The physical examination is remarkable for regular rhythm and soft systolic murmur and clear breathing sounds bilaterally and no edema was noted in the lower extremities October 29, 2024 The patient was seen and evaluated this morning with he is asymptomatic on heparin IV and he is hemodynamically stable. He was seen by the surgeon yesterday and he refused to undergo an open heart surgery. The plan is to pursue with percutaneous coronary intervention later on today probably with adju nctive use of mechanical support. The echo showed cardiomyopathy with moderate pericardial effusion. The physical examination is remarkable for regular rhythm with a soft systolic murmur and clear breathing sounds bilaterally and no edema was noted October 30, 2024 The patient was seen and evaluated this morning. He is asymptomatic and he is hemodynamically stable besides mild sinus tachycardia. He would like to go home but he was advised to stay for additional 24 hours. the right groin is soft and nontender with no bruises. He is on dual antiplatelet therapy along with a statin along with beta-nguyễn. The physical examination is remarkable for regular rhythm with a clear breathing sounds bilaterally and no edema was noted in the right groin soft and nontender with no bruises. He underwent PCI of the LAD yesterday Assessment Acute coronary syndrome Severe CAD as described above and status post PCI of the LAD History of smoking Pericardial effusion Cardiomyopathy Plan Continue the current medical regimen Increase the dose of beta-nguyễn DC IV nitrate and start the patient on oral nitrate Follow-up with the patient Objective - Vital Signs Vital signs: Vital Signs Temp 98.3 F 10/30/24 12:00 Pulse 114 H 10/30/24 15:00 Resp 18 10/30/24 15:00 BP 127/86 10/30/24 15:00 Pulse Ox 96 10/30/24 12:00 FiO2 Intake & Output 10/29/24 10/30/24 10/30/24 18:59 06:59 18:59 Intake Total 2414.375 1046.975 917.063 Output Total 243 575 2713 Balance 1689.375 696.975 -1432.937 Weight 119.1 kg 119.1 kg Intake: IV 927.5 461 180 0.9 KVO 351 461 180 Intake, IV Titration 6.875 295.975 17.063 Amount Heparin Sod,Pork in 0.45% 250 NaCl 25,000 unit In 0.45 % NaCl 1 250ml.bag @ 8. 479 UNITS/KG/HR 10 mls/hr IV .Q24H [facility] Rx#: [id number] Nitroglycerin-D5w Pmx 50 6.875 45.975 17.063 mg In Dextrose/Water 1 250ml.bag @ 2.5 MCG/MIN 0 .75 mls/hr IV .Q24H [facility] Rx#:[id number] Oral 1480 290 720 Output: Urine 168 620 0005 Other: Voiding Method Toilet Toilet Toilet Urinal Urinal # Voids 1 1 # Bowel Movements 1 - Labs CBC & Chem 7: 10/30/24 03:08 10/30/24 03:08 Labs: Abnormal Lab Results - Last 24 Hours (Table) 10/30/24 10/30/24 Range/Units 03:08 03:08 WBC 12.7 H (3.8-10.6) k/uL Neutrophils # 10.1 H (1.3-7.7) k/uL Sodium 134 L (137-145) mmol/L Carbon Dioxide 21 L (22-30) mmol/L Glucose 132 H (74-99) mg/dL Microbiology - Last 24 Hours (Table) 10/28/24 09:51 Nasal Screen MRSA/MSSA - Final Nasopharyngeal Swab
[2024-10-30] MEDS: ISOSORBIDE MONONITRATE ER 30 MG TAB.ER.24H PO SCH (15:22)
--- NOTE | 2024-10-30 15:31 | P.PN ---
Subjective Progress Note Date: 10/29/24 59-year-old male, with history of hypertension, hyperlipidemia, smoking, who has not been into see a physician in 8 years, who presents to the emergency department stating he never sees a doctor so he does not know what medical problems he has. Patient states his blood pressure though has been high for y ears. Patient states for the last week every time he eats he starts to feel like a fullness in his chest and it lasts for a while and then eventually subsides. Patient states he has no problem swallowing or eating and it does not happen immediately after he eats that happens a little bit after he is finished eating. Patient denies any nausea vomiting diarrhea. Patient states he has some difficulty breathing when this occurs but once it subsides his difficulty breathing is gone. Patient states he continues to smoke. 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 Patient denies any leg pain or calf pain or increased swelling in the legs. Blood work completed in ED reveals a WBC of 12.5, hemoglobin of 17.8 and platelet count of 340, sodium 140, potassium 4.7, BUNs/creatinine 16/0.88 and blood glucose of 106, troponin is elevated at 3.010 EKG shows sinus tachycardia at 122 bpm TN interval 148 QRS is 90 QT interval is 276 QTc is 349. Patient's EKG shows no ST segment elevation. Patient does have some T wave inversions in 1 and aVF. Patient also has Q waves in inferior and anterior leads -- Given acute non-ST elevation MA, patient was discussed with cardiology and is being taken to the [facility] patient underwent a heart catheterization which revealed severe tow-vessel CAD with occluded LCx and critical disease involving the LAD and intermediate disease involving the right coronary artery. Cardiothoracic surgery is consulted. An echocardiogram was ordered and is still pending. 24-hour interval change 10/29/2024 Patient is seen and evaluated in room at bedside; patient refused open heart surgery and requesting to pursue percutaneous intervention; scheduled for PCI this morning Vital signs are reviewed and are stable with temperature 98.7, pulse 88, respiration 15 and blood pressure of 121/72 Blood work reveals sodium 137, potassium 5.3, BUNs/creatinine of 18/0.77 and blood glucose of 142, WBCs 9.4, hemoglobin of 16.7 and platelet count of 325 Patient underwent cardiac catheterization which revealed severe two-vessel CAD with occluded LCx and critical disease involving the LAD and intermediate disease involving RCA; patient has been evaluated by cardiothoracic surgery, however patient is refusing to undergo an open heart surgery --Patient is scheduled for percutaneous intervention later in the day Objective - Vital Signs Vital signs: Vital Signs Temp 97.6 F 10/29/24 08:00 Pulse 92 10/29/24 08:00 Resp 14 10/29/24 08:00 BP 108/65 10/29/24 08:00 Pulse Ox 91 L 10/29/24 08:00 FiO2 Intake & Output 10/28/24 10/29/24 10/29/24 18:59 06:59 18:59 Intake Total 635.000 813.688 Output Total 600 Balance 35.000 813.688 Weight 120.7 kg Intake: IV 433 0.9 KVO 80 Sodium Chloride 0.9% 1, 353 000 ml In Empty Bag 1 bag @ 1 ML/KG/HR 117.934 mls /hr IV .Q8H29M [facility] Rx#: [id number] Intake, IV Titration 135.000 230.688 Amount Heparin Sod,Pork in 0.45% 135.000 230.688 NaCl 25,000 unit In 0.45 % NaCl 1 250ml.bag @ 8. 479 UNITS/KG/HR 10 mls/hr IV .Q24H [facility] Rx#: [id number] Oral 500 150 Output: Urine 600 Other: Voiding Method Urinal Toilet Toilet Urinal # Voids 1 1 - Exam GENERAL:Patient is well-developed and well-nourished. Patient is nontoxic and well-hydrated and is in mild distress. ENT:Neck is soft and supple. No significant lymphadenopathy is noted. Oropharynx is clear. Moist mucous membranes. Neck has full range of motion without eliciting any pain. EYES:The sclera were anicteric and conjunctiva were pink and moist. Extraocular movements were intact and pupils were equal round and reactive to light. Eyelids were unremarkable. PULMONARY:Unlabored respirations. Good breath sounds bilaterally. No audible rales rhonchi or wheezing was noted. CARDIOVASCULAR:Patient is tachycardic at 120 beats a minute ABDOMEN:Soft and nontender with normal bowel sounds. SKIN:Skin is clear with no lesions or rashes and otherwise unremarkable. NEUROLOGIC:Patient is alert and oriented x3. Cranial nerves II through XII are grossly intact. Motor and sensory are also intact. Normal speech, volume and content. Symmetrical smile. MUSCULOSKELETAL:Normal extremities with adequate strength and full range of motion. PSYCHIATRIC:Normal psychiatric evaluation. - Labs CBC & Chem 7: 10/30/24 03:08 10/30/24 03:08 Labs: Abnormal Lab Results - Last 24 Hours (Table) 10/28/24 10/28/24 10/29/24 Range/Units 07:32 19:27 01:57 APTT 34.5 H 46.7 H (22.0-30.0) sec Troponin I 4.250 H* (0.000-0.034) ng/mL Assessment and Plan Assessment: 1. Acute non-ST elevation MA -EKG completed in ED reveals sinus tachycardia with no acute ST elevation but does reveal T wave inversion in 1 and aVF and also Q waves in inferior and anterior leads -- Troponin elevated at 3.010 -Patient is placed on IV heparin infusion; received aspirin -Has been evaluated by cardiology and is being taken to [facility] 2. Mild leukocytosis; white blood count elevated at 12.5; patient denies any history of chest congestion or any urinary symptoms -Leukocytosis likely reactive -We will monitor CBC and make recommendations accordingly 3. History of hypertension; patient has not been in to see a physician in 8 years and is not being treated at this time 4. History of hyperlipidemia; not on any statin therapy at this time 5. Longstanding history of smoking; counseling done for need for smoking cessation DVT prophylaxis; IV heparin CODE STATUS; full code
--- NOTE | 2024-10-30 15:35 | P.PN ---
Subjective Progress Note Date: 10/30/24 59-year-old male, with history of hypertension, hyperlipidemia, smoking, who has not been into see a physician in 8 years, who presents to the emergency department stating he never sees a doctor so he does not know what medical problems he has. Patient states his blood pressure though has been high for y ears. Patient states for the last week every time he eats he starts to feel like a fullness in his chest and it lasts for a while and then eventually subsides. Patient states he has no problem swallowing or eating and it does not happen immediately after he eats that happens a little bit after he is finished eating. Patient denies any nausea vomiting diarrhea. Patient states he has some difficulty breathing when this occurs but once it subsides his difficulty breathing is gone. Patient states he continues to smoke. 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 Patient denies any leg pain or calf pain or increased swelling in the legs. Blood work completed in ED reveals a WBC of 12.5, hemoglobin of 17.8 and platelet count of 340, sodium 140, potassium 4.7, BUNs/creatinine 16/0.88 and blood glucose of 106, troponin is elevated at 3.010 EKG shows sinus tachycardia at 122 bpm MD interval 148 QRS is 90 QT interval is 276 QTc is 349. Patient's EKG shows no ST segment elevation. Patient does have some T wave inversions in 1 and aVF. Patient also has Q waves in inferior and anterior leads -- Given acute non-ST elevation PA, patient was discussed with cardiology and is being taken to the [facility] patient underwent a heart catheterization which revealed severe tow-vessel CAD with occluded LCx and critical disease involving the LAD and intermediate disease involving the right coronary artery. Cardiothoracic surgery is consulted. An echocardiogram was ordered and is still pending. 24-hour interval change 10/29/2024 Patient is seen and evaluated in room at bedside; patient refused open heart surgery and requesting to pursue percutaneous intervention; scheduled for PCI this morning Vital signs are reviewed and are stable with temperature 98.7, pulse 88, respiration 15 and blood pressure of 121/72 Blood work reveals sodium 137, potassium 5.3, BUNs/creatinine of 18/0.77 and blood glucose of 142, WBCs 9.4, hemoglobin of 16.7 and platelet count of 325 Patient underwent cardiac catheterization which revealed severe two-vessel CAD with occluded LCx and critical disease involving the LAD and intermediate disease involving RCA; patient has been evaluated by cardiothoracic surgery, however patient is refusing to undergo an open heart surgery --Patient is scheduled for percutaneous intervention later in the day 10/30/2024 Patient is seen and evaluated in ICU; no complaint of chest pain or shortness of breath; insisting on being discharged today; await patient reevaluation by cardiology Vital signs are reviewed and stable Patient underwent PCI of LAD yesterday; has been placed on a dual antiplatelet therapy; placed on statins, beta-blockers -Cardiology discontinuing IV nitroglycerin and patient is to start on oral nitrates -Continue to monitor for another 24 hours Objective - Vital Signs Vital signs: Vital Signs Temp 97.9 F 10/30/24 08:00 Pulse 101 H 10/30/24 10:00 Resp 22 10/30/24 10:00 BP 118/62 10/30/24 10:00 Pulse Ox 94 L 10/30/24 08:30 FiO2 Intake & Output 10/29/24 10/30/24 10/30/24 18:59 06:59 18:59 Intake Total 2414.375 1046.975 331.513 Output Total 770 668 7235 Balance 1689.375 696.975 -668.487 Weight 119.1 kg Intake: IV 927.5 461 80 0.9 KVO 351 461 80 Intake, IV Titration 6.875 295.975 11.513 Amount Heparin Sod,Pork in 0.45% 250 NaCl 25,000 unit In 0.45 % NaCl 1 250ml.bag @ 8. 479 UNITS/KG/HR 10 mls/hr IV .Q24H [facility] Rx#: [id number] Nitroglycerin-D5w Pmx 50 6.875 45.975 11.513 mg In Dextrose/Water 1 250ml.bag @ 2.5 MCG/MIN 0 .75 mls/hr IV .Q24H [facility] Rx#:[id number] Oral 1480 290 240 Output: Urine 050 695 0239 Other: Voiding Method Toilet Toilet Toilet Urinal Urinal # Voids 1 1 # Bowel Movements 1 - Exam GENERAL:Patient is well-developed and well-nourished. Patient is nontoxic and well-hydrated and is in mild distress. ENT:Neck is soft and supple. No significant lymphadenopathy is noted. Oropharynx is clear. Moist mucous membranes. Neck has full range of motion without eliciting any pain. EYES:The sclera were anicteric and conjunctiva were pink and moist. Extraocular movements were intact and pupils were equal round and reactive to light. Eyelids were unremarkable. PULMONARY:Unlabored respirations. Good breath sounds bilaterally. No audible rales rhonchi or wheezing was noted. CARDIOVASCULAR:Patient is tachycardic at 120 beats a minute ABDOMEN:Soft and nontender with normal bowel sounds. SKIN:Skin is clear with no lesions or rashes and otherwise unremarkable. NEUROLOGIC:Patient is alert and oriented x3. Cranial nerves II through XII are grossly intact. Motor and sensory are also intact. Normal speech, volume and content. Symmetrical smile. MUSCULOSKELETAL:Normal extremities with adequate strength and full range of motion. PSYCHIATRIC:Normal psychiatric evaluation. - Labs CBC & Chem 7: 10/30/24 03:08 10/30/24 03:08 Labs: Abnormal Lab Results - Last 24 Hours (Table) 10/30/24 10/30/24 Range/Units 03:08 03:08 WBC 12.7 H (3.8-10.6) k/uL Neutrophils # 10.1 H (1.3-7.7) k/uL Sodium 134 L (137-145) mmol/L Carbon Dioxide 21 L (22-30) mmol/L Glucose 132 H (74-99) mg/dL Microbiology - Last 24 Hours (Table) 10/28/24 09:51 Nasal Screen MRSA/MSSA - Final Nasopharyngeal Swab Assessment and Plan Assessment: 1. Acute non-ST elevation PA -EKG completed in ED reveals sinus tachycardia with no acute ST elevation but does reveal T wave inversion in 1 and aVF and also Q waves in inferior and anterior leads -- Troponin elevated at 3.010 -Patient is placed on IV heparin infusion; received aspirin -Has been evaluated by cardiology and is being taken to [facility] 2. Mild leukocytosis; white blood count elevated at 12.5; patient denies any history of chest congestion or any urinary symptoms -Leukocytosis likely reactive -We will monitor CBC and make recommendations accordingly 3. History of hypertension; patient has not been in to see a physician in 8 years and is not being treated at this time 4. History of hyperlipidemia; not on any statin therapy at this time 5. Longstanding history of smoking; counseling done for need for smoking cessation DVT prophylaxis; IV heparin CODE STATUS; full code
[2024-10-30] MEDS: METOPROLOL TARTRATE 12.5 MG TAB PO SCH (20:32)
[2024-10-31 09:18] VITALS: TEMP 97.7
[2024-10-31 12:05] VITALS: BP 128/75; PULSE 96; RESP 16
--- NOTE | 2024-10-31 14:03 | P.PN ---
Subjective Progress Note Date: 10/31/24 The patient is a very pleasant 59-year-old gentleman who did not see a physician or primary care physician in more than 8 years with a past medical history significant for hypertension and dyslipidemia and smoking presented to the hospital complaining of chest discomfort started a week ago. He was experi encing discomfort in the middle of the chest as a pressure on the chest with no radiation to the arm or neck or shoulders or back and no associated symptoms of any shortness of breath or sweating or dizziness or lightheadedness or any presyncope or syncope he underwent further evaluation in the ER including EKG showing Q waves anteriorly and troponin came in to be abnormal and concerning for acute coronary event with chest x-ray did not show any acute abnormalities. Subsequently the patient underwent a heart catheterization which revealed severe tow-vessel CAD with occluded LCx and critical disease involving the LAD and intermediate disease involving the right coronary artery. At that point we consulted surgery to see the patient the patient is in process of seeing seen by cardiothoracic surgical team. An echocardiogram was ordered and is still pending. The physical examination is remarkable for regular rhythm with a soft systolic murmur and clear breathing sounds bilaterally and no edema was noted. October 28, 2024 The patient was seen and evaluated this morning with he has been asymptomatic throughout the night. Hemodynamically he is stable. He is back on heparin IV. Beside that he is on aspirin and high intensity statin and beta-nguyễn and ESTHER inhibitor. The echo still pending. The physical examination is remarkable for regular rhythm and soft systolic murmur and clear breathing sounds bilaterally and no edema was noted in the lower extremities October 29, 2024 The patient was seen and evaluated this morning with he is asymptomatic on heparin IV and he is hemodynamically stable. He was seen by the surgeon yesterday and he refused to undergo an open heart surgery. The plan is to pursue with percutaneous coronary intervention later on today probably with adju nctive use of mechanical support. The echo showed cardiomyopathy with moderate pericardial effusion. The physical examination is remarkable for regular rhythm with a soft systolic murmur and clear breathing sounds bilaterally and no edema was noted October 30, 2024 The patient was seen and evaluated this morning. He is asymptomatic and he is hemodynamically stable besides mild sinus tachycardia. He would like to go home but he was advised to stay for additional 24 hours. the right groin is soft and nontender with no bruises. He is on dual antiplatelet therapy along with a statin along with beta-nguyễn. The physical examination is remarkable for regular rhythm with a clear breathing sounds bilaterally and no edema was noted in the right groin soft and nontender with no bruises. He underwent PCI of the LAD yesterday October 31, 2024 The patient was seen and evaluated this morning and he is asymptomatic and hemodynamically stable and continues to be on dual antiplatelet therapy and he would like to go home. He is not willing to wait to have a LifeVest. The physical examination appears to be consistent with regular rate and rhythm and clear breathing sounds bilaterally and no edema was noted in the lower extremities Assessment Acute coronary syndrome Severe CAD as described above and status post PCI of the LAD History of smoking Pericardial effusion Cardiomyopathy Plan Continue the current medical regimen The patient would like to go home Objective - Vital Signs Vital signs: Vital Signs Temp 97.7 F 10/31/24 12:00 Pulse 96 10/31/24 12:00 Resp 16 10/31/24 12:00 BP 128/75 10/31/24 12:00 Pulse Ox 95 10/31/24 12:00 FiO2 Intake & Output 10/30/24 10/31/24 10/31/24 18:59 06:59 18:59 Intake Total 917.063 Output Total 2350 Balance -1432.937 Weight 119.1 kg 116.7 kg Intake: IV 180 0.9 KVO 180 Intake, IV Titration 17.063 Amount Nitroglycerin-D5w Pmx 50 17.063 mg In Dextrose/Water 1 250ml.bag @ 2.5 MCG/MIN 0 .75 mls/hr IV .Q24H [facility] Rx#:[id number] Oral 720 Output: Urine 2350 Other: Voiding Method Toilet Toilet Toilet Urinal Urinal # Voids 1 # Bowel Movements 1 - Labs CBC & Chem 7: 10/30/24 03:08 10/30/24 03:08
== END 2024-10-31 14:50 | disposition home or self-care (01) | DRG 217 ==
LOC: EC 11:41 → 3SCARD 14:14 → 2SICU 17:53
PROVIDERS: ADMIT Internal Medicine; ATTEND Internal Medicine
PROC: 4A023N7 Measurement of Cardiac Sampling and Pressure, Left Heart, Percutaneous Approach (ICD-10-PCS; 2024-10-27)
PROC: B2111ZZ Fluoroscopy of Multiple Coronary Arteries using Low Osmolar Contrast (ICD-10-PCS; 2024-10-27)
PROC: 5A0221D Assistance with Cardiac Output using Impeller Pump, Continuous (ICD-10-PCS; 2024-10-29)
PROC: B240ZZ3 Ultrasonography of Single Coronary Artery, Intravascular (ICD-10-PCS; 2024-10-29)
PROC: 027034Z Dilation of Coronary Artery, One Artery with Drug-eluting Intraluminal Device, Percutaneous Approach (ICD-10-PCS; principal; 2024-10-29 10:30)
PROC: 02HA3RJ Insertion of Short-term External Heart Assist System into Heart, Intraoperative, Percutaneous Approach (ICD-10-PCS; 2024-10-29 10:30)
DX: I21.4 Non-ST elevation (NSTEMI) myocardial infarction (principal); I31.39 Other pericardial effusion (noninflammatory); I10 Essential (primary) hypertension; E66.9 Obesity, unspecified; I42.9 Cardiomyopathy, unspecified; D72.828 Other elevated white blood cell count; E78.5 Hyperlipidemia, unspecified; F17.210 Nicotine dependence, cigarettes, uncomplicated; I25.10 Atherosclerotic heart disease of native coronary artery without angina pectoris; Z68.36 Body mass index [BMI] 36.0-36.9, adult; Z82.49 Family history of ischemic heart disease and other diseases of the circulatory system; Z79.82 Long term (current) use of aspirin; Z85.72 Personal history of non-Hodgkin lymphomas; Z86.14 Personal history of Methicillin resistant Staphylococcus aureus infection; Z86.19 Personal history of other infectious and parasitic diseases
CPT/HCPCS: 33990; 36415; 71046; 71250; 80048; 80053; 80061; 80074; 81003; 83036; 83690; 83735; 83880; 84439; 84443; 84484; 85025; 85027; 85379; 85610; 85730; 87070; 87636; 92978; 93005; 93306; 93458; 93880; 93922; 93970; 96365; 96366; 96375; 99291